=== PATIENT | female | born 1975 | race Caucasian/White ===

== ENCOUNTER 2020-03-03 07:50 | Outpatient (REF) | payer OTHER, SELFPAY ==
[2020-03-03 11:09] LABS: MANUAL DIFF FLAG NO
[2020-03-03 11:34] LABS: Basophils Absolute Auto 0.1 X10*3/uL (0.0-0.2); Basophils Percent Auto 0.7 % (0-2); Eosinophils Absolute Auto 0.3 X10*3/uL (0.0-0.4); Eosinophils Percent Auto 4.6 % (0-4); Hematocrit 38.8 % (37-47); Hemoglobin 12.3 g/dl (12.0-16.0); Imm Gran Abs Auto 0.02 X10*3/uL (0.00-0.03); Imm Gran Pct Auto 0.3 % (0.0-0.4); Lymphocytes Absolute Auto 2.3 X10*3/uL (1.2-4.9); Lymphocytes Percent Auto 34.4 % (20-40); Mean Corpuscular HGB Conc 31.7 g/dl (31.0-35.0); Mean Corpuscular Hemoglobin 29.6 pg (27.0-33.0); Mean Corpuscular Volume 93.3 fL (80-98); Mean Platelet Volume 9.7 fL (9.4-12.3); Monocytes Absolute Auto 0.4 X10*3/uL (0.1-1.2); Monocytes Percent Auto 6.4 % (2-11); Neutrophils Absolute Auto 3.6 X10*3/uL (2.0-8.3); Neutrophils Percent Auto 53.6 % (45-73); Platelet Count 318 X10*3/uL (160-400); Red Blood Count 4.16 X10*6/uL (4.20-5.50); Red Cell Distribution Width 13.1 % (11.0-16.0); White Blood Count 6.7 X10*3/uL (4.8-10.8)
[2020-03-03 11:51] LABS: Alanine Aminotransferase 13 U/L (0-31); Albumin Level 4.1 g/dL (3.5-5.0); Alkaline Phosphatase 83 U/L (39-117); Anion Gap 13 (12-20); Aspartate Amino Transferase 11 U/L (5-31); Bilirubin Total 0.7 mg/dL (0.0-1.0); Blood Urea Nitrogen 13 mg/dL (9-16); Calcium 8.3 mg/dL (8.4-10.2); Carbon Dioxide 24 mmol/L (22-29); Chloride 103 mmol/L (96-108); Cholesterol 158 mg/dL; Estimated Glomerular Filt Rate > 60; Glucose Fasting 91 mg/dL (60-99); HDL Cholesterol 48 mg/dL; LDL Cholesterol Calculated 99 mg/dl; Potassium 4.2 mmol/l (3.3-5.1); Sodium 136 mmol/L (135-145); Total Protein 6.4 g/dL (6.5-8.0); Triglycerides 55 mg/dL
[2020-03-03 12:02] LABS: Free T4 (Free Thyroxine) 1.01 ng/dL (0.71-1.85); Thyroid Stimulating Hormone 3.83 mIU/mL (0.32-4.0)
[2020-03-03 12:30] LABS: Vitamin B12 195 pg/mL (200-900)
== END 2020-03-03 07:51 | disposition home or self-care (01) ==
LOC: HO.HMGCLDS 07:50
PROVIDERS: PCP Internal Medicine; Visit Provider Internal Medicine
DX: E53.8 Deficiency of other specified B group vitamins (principal); I10 Essential (primary) hypertension; E78.2 Mixed hyperlipidemia; R73.01 Impaired fasting glucose; K76.0 Fatty (change of) liver, not elsewhere classified; E03.9 Hypothyroidism, unspecified; D12.6 Benign neoplasm of colon, unspecified
CPT/HCPCS: 36415; 80053; 80061; 82607; 84439; 84443; 85025

== ENCOUNTER → 2020-03-15 13:15 | Outpatient (BNVA) | payer OTHER, SELFPAY | PROVIDERS: PCP Internal Medicine; Visit Provider Nurse Practitioner Family | DX: Z01.818 Encounter for other preprocedural examination (principal); Z80.0 Family history of malignant neoplasm of digestive organs | CPT/HCPCS: Q3014 ==

== ENCOUNTER → 2020-04-05 09:28 | Outpatient (BNVA) | payer OTHER, SELFPAY | PROVIDERS: PCP Internal Medicine; Visit Provider Advanced Practice Midwife | DX: Z76.89 Persons encountering health services in other specified circumstances (principal) ==

== ENCOUNTER → 2020-05-14 09:47 | Outpatient (BNVA) | payer OTHER, SELFPAY | PROVIDERS: PCP Internal Medicine; Referring Provider Internal Medicine; Visit Provider Urology | DX: Z76.89 Persons encountering health services in other specified circumstances (principal) | CPT/HCPCS: 99202 ==

== ENCOUNTER 2020-05-25 07:55 | Day surgery (SDC) | payer OTHER, SELFPAY ==
--- NOTE | 2020-05-24 12:16 | HO.ANESPROP2 ---
Documented by User: Arleth Noriega 05/24/20 12:19 HPI - Anesthesia Eval Consult details Narrative: 45yo F for Interstim Lead Removal PMFSH Past Medical History Medical History Acquired hypothyroidism Adenomatous polyp of colon Anxiety disorder Essential hypertension Family history of colon cancer in mother Family history of malignant neoplasm of ovary in first degree relative Family history of uterine cancer Fatty liver GERD (gastroesophageal reflux disease) Heavy menstrual bleeding History of kidney stones Impaired fasting glucose Migraine Mixed hyperlipidemia Nonspecific abnormal response to nerve stimulation Urinary incontinence Vitamin B12 deficiency Family History Family History Father CHF (congestive heart failure) CVD (cardiovascular disease) Mother Ovarian cancer Renal cancer Maternal Grandmother Breast cancer Ovarian cancer CHF (congestive heart failure) Maternal Grandfather Liver cirrhosis Paternal Grandfather Throat cancer Diabetes mellitus Paternal Grandmother Diabetes mellitus Maternal Aunt Breast cancer Ovarian cancer Sister No problems noted. Sister No problems noted. Son No problems noted. Son No problems noted. Daughter No problems noted. Daughter No problems noted. Surgical History Surgical History History of appendectomy History of biopsy History of bladder surgery History of endometrial biopsy History of knee surgery History of tonsillectomy History of tubal ligation Hx of cholecystectomy Hx of colonoscopy Social History Social History Alcohol intake: former Smoking Status: Never smoker Use of substances other than those prescribed or required for medical reasons: No Have you been hit, kicked, punched, or otherwise hurt by someone within the past year? If so, by whom?: No Advance Directives: No Advance Directives Information Provided: No Recently lost weight without trying: Unsure Meds Allergies Allergy/AdvReac Type Severity Reaction Status Date / Time bee pollen [BEE STINGS] Allergy Unknown ANAPHYLAXIS Verified 05/14/20 10:01 Penicillins Allergy Unknown coma? Verified 05/14/20 10:01 erythromycin base AdvReac Mild VOMITING Verified 05/14/20 10:01 [ERYTHROMYCIN BASE] iodine AdvReac Unknown peeling Verified 05/14/20 10:01 skin Home Medications Medication Instructions Recorded Confirmed Type levonorgestrel 20 mcg/24 hours (6 INTRAUTERINE 03/02/20 05/14/20 History yrs) 52 mg intrauterine device multivitamin 1 tab PO DAILY 03/02/20 05/20/20 History Exam Exam Date and Time: May 24, 2020 1216 Pertinent Lab Results Pertinent Lab Results: Laboratory Tests 03/03/20 03/03/20 08:00 08:00 WBC 6.7 Hgb 12.3 Hct 38.8 Plt Count 318 Sodium 136 Potassium 4.2 Chloride 103 Carbon Dioxide 24 BUN 13 Creatinine 0.76 Assessment and Plan Assessment Anesthesia Assessment: Chart Reviewed Documented by User: Gnujan Oconnor 05/25/20 08:18 [facility] Past Medical History Medical History Acquired hypothyroidism Adenomatous polyp of colon Anxiety disorder Essential hypertension Family history of colon cancer in mother Family history of malignant neoplasm of ovary in first degree relative Family history of uterine cancer Fatty liver GERD (gastroesophageal reflux disease) Heavy menstrual bleeding History of kidney stones Impaired fasting glucose Migraine Mixed hyperlipidemia Nonspecific abnormal response to nerve stimulation Urinary incontinence Vitamin B12 deficiency Family History Family History Father CHF (congestive heart failure) CVD (cardiovascular disease) Mother Ovarian cancer Renal cancer Maternal Grandmother Breast cancer Ovarian cancer CHF (congestive heart failure) Maternal Grandfather Liver cirrhosis Paternal Grandfather Throat cancer Diabetes mellitus Paternal Grandmother Diabetes mellitus Maternal Aunt Breast cancer Ovarian cancer Sister No problems noted. Sister No problems noted. Son No problems noted. Son No problems noted. Daughter No problems noted. Daughter No problems noted. Surgical History Surgical History History of appendectomy History of biopsy History of bladder surgery History of endometrial biopsy History of knee surgery History of tonsillectomy History of tubal ligation Hx of cholecystectomy Hx of colonoscopy Social History Social History Alcohol intake: former Smoking Status: Never smoker Use of substances other than those prescribed or required for medical reasons: No Have you been hit, kicked, punched, or otherwise hurt by someone within the past year? If so, by whom?: No Advance Directives: No Advance Directives Information Provided: No Recently lost weight without trying: Unsure Meds Allergies Allergy/AdvReac Type Severity Reaction Status Date / Time bee pollen [BEE STINGS] Allergy Unknown ANAPHYLAXIS Verified 05/14/20 10:01 Penicillins Allergy Unknown coma? Verified 05/14/20 10:01 erythromycin base AdvReac Mild VOMITING Verified 05/14/20 10:01 [ERYTHROMYCIN BASE] iodine AdvReac Unknown peeling Verified 05/14/20 10:01 skin Home Medications Medication Instructions Recorded Confirmed Type levonorgestrel 20 mcg/24 hours (6 INTRAUTERINE 03/02/20 05/14/20 History yrs) 52 mg intrauterine device multivitamin 1 tab PO DAILY 03/02/20 05/20/20 History Exam Airway Mallampati Class: II TM Dist: >3cm Neck ROM: Full Assessment and Plan Assessment Anesthesia Assessment: Anesthesia Plan Discussed and Chart Reviewed Final Anesthetic Review NPO: Yes ASA Class: II Final Preanesthetic Review: No Changes in Pt Med Stat, Meds/Allgs Chart Reviewed, Consent Obtained/Reviewed and Anes Risks/Benef Reviewed Patient Risk: Low Procedure Risk: Low Assessment/Block/Sedation in SS: Assess/Block/Sedation-SS Anesthetic Plan Anesthetic Plan: MAC: Disposition: Standard PACU
[2020-05-24 16:05] VITALS: BMI 38.6
--- NOTE | 2020-05-25 08:06 | MHC.SHP ---
Pre-Procedural Eval Section A The patient is an INPATIENT: No The History & Physical has been completed within 30 days and I have reviewed it.: Yes Section B Chief Complaint: urinary incontinence Allergies: Allergies Allergy/AdvReac Type Severity Reaction Status Date / Time bee pollen [BEE STINGS] Allergy Unknown ANAPHYLAXIS Verified 05/14/20 10:01 Penicillins Allergy Unknown coma? Verified 05/14/20 10:01 erythromycin base AdvReac Mild VOMITING Verified 05/14/20 10:01 [ERYTHROMYCIN BASE] iodine AdvReac Unknown peeling Verified 05/14/20 10:01 skin Plan Diagnosis/Plan: Unchanged I have reviewed the history and physical and performed a pertinent physical examination on my patient. No changes have occurred unless specified.
[2020-05-25 08:11] VITALS: BP 111/39; PULSE 81; RESP 16; TEMP 36.4; O2SAT 99
[2020-05-25] MEDS: Lactated Ringers 1,000 ML 100 ML IVCONT (08:28)
[2020-05-25] MEDS: levoFLOXacin/D5W 500 MG/100 ML PIGGYBACK 100 MG IV (08:29)
--- NOTE | 2020-05-25 09:01 | PM.OP ---
Brief Operative Note Date of Service: 05/25/20 Pre-op diagnosis: urinary incontinence Post-op diagnosis: same Procedure: removal of IPG and lead Surgeon: Tay Brown III, MD Anesthesia: MAC and local Estimated blood loss (mL): 0 Pathology: none sent Condition: stable Disposition: same day
[2020-05-25 09:03] VITALS: BP 93/46; PULSE 78; RESP 16; TEMP 36.2; O2SAT 94
[2020-05-25 09:08] VITALS: BP 104/57; PULSE 61; RESP 16; O2SAT 94
[2020-05-25 09:14] VITALS: BP 107/47; PULSE 70; RESP 18; O2SAT 94
[2020-05-25 09:19] VITALS: BP 109/63; PULSE 60; RESP 18; O2SAT 95
[2020-05-25] MEDS: Acetaminophen 325 MG TABLET 650 MG PO (09:23)
[2020-05-25] MEDS: oxyCODONE HCl Immed Release 5 MG TABLET PO (09:23)
[2020-05-25 09:38] VITALS: TEMP 36.3
--- NOTE | 2020-05-25 10:00 | HO.POSTANES ---
Post Anesthesia Evaluation Post Anesthesia Evaluation Vital Signs: Vital Signs Temp Pulse Resp BP Pulse Ox 05/25/20 09:38 97.4 F 05/25/20 09:19 60 18 109/63 95 05/25/20 09:14 70 18 107/47 L 94 05/25/20 09:08 61 16 104/57 L 94 05/25/20 09:03 97.2 F 78 16 93/46 L 94 05/25/20 08:11 97.5 F 81 16 111/39 L 99 Anesthesia: Monitored Mental Status: Awake Pain Control: Satisfactory Nausea/Vomiting: None Hydration: Adequate Anesthesia-Related Issues: No Anes. Related Issues
--- NOTE | 2020-08-26 16:05 | OP_ITS ---
SURGEON: Tay Brown III, MD PREOPERATIVE DIAGNOSIS: Urinary incontinence. POSTOPERATIVE DIAGNOSIS: Urinary incontinence. PROCEDURE PERFORMED: ESTIMATED BLOOD LOSS: None. COMPLICATIONS: None. ANESTHESIA: ASSISTANTS: SPECIMENS: PROCEDURE: Removal of InterStim IPG and lead. ANESTHETIC: MAC local. SPECIMEN: None. DESCRIPTION OF PROCEDURE: The patient was taken to the operating room. After adequate anesthesia obtained, a time-out done demonstrating correct patient, correct procedure. Following this, the patient underwent injection of local and the previous incision was opened. Sharp dissection was used to expose the IPG which removed. The wire was dissected back towards the midline and subsequently grasped at the most distal aspect with a needle electric train driver and pulled and removed as was explained to the patient preoperatively. The distal end of the lead with its fixation device is still in place. The patient had irrigation of her incision, subsequently had a 3-layer closure. She tolerated procedure well with no complications. Tay Brown III, MD SS/MODL / [id number]
== END 2020-05-25 10:10 | disposition home or self-care (01) ==
PROVIDERS: PCP Internal Medicine; Visit Provider Urology
PROC: (CPT 64585; principal; 2020-05-25 09:20)
DX: R32 Unspecified urinary incontinence (principal); Z87.442 Personal history of urinary calculi; I10 Essential (primary) hypertension; R73.01 Impaired fasting glucose; E55.9 Vitamin D deficiency, unspecified; Z79.899 Other long term (current) drug therapy; Z88.0 Allergy status to penicillin
CPT/HCPCS: 64585; 64595; J1956; J2250; J2405; J3010

== ENCOUNTER 2020-05-27 06:35 | Day surgery (SDC) | payer OTHER, SELFPAY ==
[2020-05-20 15:31] VITALS: BMI 37.9
--- NOTE | 2020-05-26 08:17 | P.CONAN_ITS ---
Documented by User: Arleth Noriega 05/26/20 08:19 HPI - Anesthesia Eval Consult details Narrative: 45yo F for Colonoscopy s/p Interstim lead removal with MAC 05/25/20 PMF Past Medical History Medical History Acquired hypothyroidism Adenomatous polyp of colon Anxiety disorder Essential hypertension Family history of colon cancer in mother Family history of malignant neoplasm of ovary in first degree relative Family history of uterine cancer Fatty liver GERD (gastroesophageal reflux disease) Heavy menstrual bleeding History of kidney stones Impaired fasting glucose Migraine Mixed hyperlipidemia Nonspecific abnormal response to nerve stimulation Urinary incontinence Vitamin B12 deficiency Family History Family History Father CHF (congestive heart failure) CVD (cardiovascular disease) Mother Ovarian cancer Renal cancer Maternal Grandmother Breast cancer Ovarian cancer CHF (congestive heart failure) Maternal Grandfather Liver cirrhosis Paternal Grandfather Throat cancer Diabetes mellitus Paternal Grandmother Diabetes mellitus Maternal Aunt Breast cancer Ovarian cancer Sister No problems noted. Sister No problems noted. Son No problems noted. Son No problems noted. Daughter No problems noted. Daughter No problems noted. Surgical History Surgical History History of appendectomy History of biopsy History of bladder surgery History of endometrial biopsy History of knee surgery History of tonsillectomy History of tubal ligation Hx of cholecystectomy Hx of colonoscopy Social History Social History Alcohol intake: former Smoking Status: Never smoker Second Hand Smoke Exposure: No Advance Directives: No Advance Directives Information Provided: Yes Recently lost weight without trying: No Meds Allergies Allergy/AdvReac Type Severity Reaction Status Date / Time bee pollen [BEE STINGS] Allergy Unknown ANAPHYLAXIS Verified 05/14/20 10:01 Penicillins Allergy Unknown coma? Verified 05/14/20 10:01 erythromycin base AdvReac Mild VOMITING Verified 05/14/20 10:01 [ERYTHROMYCIN BASE] iodine AdvReac Unknown peeling Verified 05/14/20 10:01 skin Home Medications Medication Instructions Recorded Confirmed Type levonorgestrel 20 mcg/24 hours (6 INTRAUTERINE 03/02/20 05/14/20 History yrs) 52 mg intrauterine device multivitamin 1 tab PO DAILY 03/02/20 05/20/20 History Exam Exam Date and Time: May 26, 2020 0817 Height,Weight and Vital Signs: Height 5 ft 4 in Weight 100.244 kg Pertinent Lab Results Pertinent Lab Results: Laboratory Tests 03/03/20 03/03/20 08:00 08:00 WBC 6.7 Hgb 12.3 Hct 38.8 Plt Count 318 Sodium 136 Potassium 4.2 Chloride 103 Carbon Dioxide 24 BUN 13 Creatinine 0.76 Assessment and Plan Assessment Anesthesia Assessment: Chart Reviewed Documented by User: Laurel Garcia 05/27/20 07:32 [facility] Past Medical History Medical History Acquired hypothyroidism Adenomatous polyp of colon Anxiety disorder Essential hypertension Family history of colon cancer in mother Family history of malignant neoplasm of ovary in first degree relative Family history of uterine cancer Fatty liver GERD (gastroesophageal reflux disease) Heavy menstrual bleeding History of kidney stones Impaired fasting glucose Migraine Mixed hyperlipidemia Nonspecific abnormal response to nerve stimulation Urinary incontinence Vitamin B12 deficiency Family History Family History Father CHF (congestive heart failure) CVD (cardiovascular disease) Mother Ovarian cancer Renal cancer Maternal Grandmother Breast cancer Ovarian cancer CHF (congestive heart failure) Maternal Grandfather Liver cirrhosis Paternal Grandfather Throat cancer Diabetes mellitus Paternal Grandmother Diabetes mellitus Maternal Aunt Breast cancer Ovarian cancer Sister No problems noted. Sister No problems noted. Son No problems noted. Son No problems noted. Daughter No problems noted. Daughter No problems noted. Family history of problems with anesthesia: No Surgical History Surgical History History of appendectomy History of biopsy History of bladder surgery History of endometrial biopsy History of knee surgery History of tonsillectomy History of tubal ligation Hx of cholecystectomy Hx of colonoscopy History of Problems with Anesthesia: No Social History Social History Alcohol intake: former Smoking Status: Never smoker Second Hand Smoke Exposure: No Advance Directives: No Advance Directives Information Provided: Yes Recently lost weight without trying: No Meds Allergies Allergy/AdvReac Type Severity Reaction Status Date / Time bee pollen [BEE STINGS] Allergy Unknown ANAPHYLAXIS Verified 05/14/20 10:01 Penicillins Allergy Unknown coma? Verified 05/14/20 10:01 erythromycin base AdvReac Mild VOMITING Verified 05/14/20 10:01 [ERYTHROMYCIN BASE] iodine AdvReac Unknown peeling Verified 05/14/20 10:01 skin Home Medications Medication Instructions Recorded Confirmed Type levonorgestrel 20 mcg/24 hours (6 INTRAUTERINE 03/02/20 05/14/20 History yrs) 52 mg intrauterine device multivitamin 1 tab PO DAILY 03/02/20 05/20/20 History Exam Height,Weight and Vital Signs: Vital Signs Temp Pulse Resp BP Pulse Ox 05/27/20 06:55 97.2 F 80 15 103/55 L 98 Airway Mallampati Class: II TM Dist: >3cm Neck ROM: Full Denture: Upper Heart: RRR Lungs: CTAB Assessment and Plan Assessment Anesthesia Assessment: Anesthesia Plan Discussed and Chart Reviewed Final Anesthetic Review NPO: Yes ASA Class: II Final Preanesthetic Review: No Changes in Pt Med Stat, Meds/Allgs Chart Reviewed, Consent Obtained/Reviewed and Anes Risks/Benef Reviewed Patient Risk: Low Procedure Risk: Low Assessment/Block/Sedation in SS: Assess/Block/Sedation-SS Anesthetic Plan Anesthetic Plan: MAC: Disposition: Standard PACU
[2020-05-27 06:55] VITALS: BP 103/55; PULSE 80; RESP 15; TEMP 36.2; O2SAT 98
[2020-05-27] MEDS: Lactated Ringers 1,000 ML 100 ML IVCONT (07:06)
--- NOTE | 2020-05-27 07:46 | MHC.SHP ---
Pre-Procedural Eval Section B Chief Complaint: screening Details of Present Illness: Colon cancer screening, Hx of tubular adenomas, +family hx-mother age 46 Relevant Family History (Specify if Yes): Yes Relevant Social History: None Present Medications: see Short Stay Collaborative assessment Medical History: Significant History (Obesity) History of Previous Operations: Relevant previous surgery/procedure and date(s) (Appendix, BTL, cholecystectomy, colonoscopy in 2011) Allergies: Allergies Allergy/AdvReac Type Severity Reaction Status Date / Time bee pollen [BEE STINGS] Allergy Unknown ANAPHYLAXIS Verified 05/14/20 10:01 Penicillins Allergy Unknown coma? Verified 05/14/20 10:01 erythromycin base AdvReac Mild VOMITING Verified 05/14/20 10:01 [ERYTHROMYCIN BASE] iodine AdvReac Unknown peeling Verified 05/14/20 10:01 skin Review of Systems Sugical H&P ROS: Negative: Constitution, Respiratory and Gastrointestinal Exam Surgical H&P Exam: Normal: HEENT, Normal: Heart, Normal: Lungs and Normal: Abdomen Plan Diagnosis/Plan: Unchanged I have reviewed the history and physical and performed a pertinent physical examination on my patient. No changes have occurred unless specified.yes.
[2020-05-27 08:35] VITALS: BP 97/52; PULSE 80; RESP 16; TEMP 36.2; O2SAT 96
--- NOTE | 2020-05-27 08:36 | PCN2_ITS ---
Brief Operative Note Date of procedure: 05/27/20 Pre-op diagnosis: COLON CANCER SCREENING, HX TUBULAR ADENOMAS-2011; HX COLON C ANCER MOTHER 46 Post-op diagnosis: other (MILD MELANOSIS TINGE, NORMAL COLON-FAIR PREP) Procedure: COLONOSCOPY Anesthesia: MAC (Tori CARPENTER CRNA) Surgeon: Chyna Hernandez Estimated blood loss (mL): 0 Pathology: none sent Condition: stable Disposition: PACU
[2020-05-27 08:48] VITALS: BP 116/69; PULSE 64; RESP 18; TEMP 36.1; O2SAT 98
--- NOTE | 2020-05-27 09:07 | HO.POSTANES ---
Post Anesthesia Evaluation Post Anesthesia Evaluation Vital Signs: Vital Signs Temp Pulse Resp BP Pulse Ox 05/27/20 08:48 97.0 F 64 18 116/69 98 05/27/20 08:35 97.1 F 80 16 97/52 L 96 05/27/20 06:55 97.2 F 80 15 103/55 L 98 Anesthesia: TIVA Mental Status: Awake Pain Control: Satisfactory Nausea/Vomiting: None Hydration: Adequate Anesthesia-Related Issues: No Anes. Related Issues
--- NOTE | 2020-05-27 10:42 | OP_ITS ---
SURGEON: Chyna Hernandez MD PREOPERATIVE DIAGNOSIS: Colon cancer screening, Positive family hx. POSTOPERATIVE DIAGNOSIS: Diagnosis negative. Positive family history. PROCEDURE PERFORMED: Colonoscopy. ESTIMATED BLOOD LOSS: No blood loss. COMPLICATIONS: No complications. ANESTHESIA: Monitored. ANESTHESIOLOGIST: Favio Frausto CRNA. ASSISTANTS:NONE SPECIMENS: No specimens. PREOPERATIVE DIAGNOSES: Colon cancer screening, high-risk patient; history of tubular adenomas in 2012; mother with colon cancer at 46. ROLLING DOWN MACHINE OPERATOR: Dr. Hernandez. CONDITION: Postprocedure, stable. FINDINGS: Digital rectal exam revealed sphincter tone to be decreased. Video colonoscope was introduced without difficulty. It was navigated into rectosigmoid. There was moderate amount of residual turbid fluid with some solid skibble of stool as we passed through a redundant colon. As the scope got to the mid transverse colon, there was extrinsic looping. With 2-tech assist we were able to improve passage through proximal transverse colon, ascending colon down into the cecum. Appendiceal orifice was seen. Ileocecal valve was well seen. No mucosal abnormalities were appreciated. Slow withdrawal of the scope. Good rotational views. No lesions were seen. Anorectal verge was clear. COMMENT: Prep was marginal in spots. Would recommend FIT testing at years 1 and 3. CURRENT RECOMMENDATIONS: Repeat asymptomatic screening in 5 years. GRAFT OR IMPLANTS: No grafts or implants. Chyna Hernandez MD MEN/MODL / [id number] MTDD
== END 2020-05-27 09:17 | disposition home or self-care (01) ==
PROVIDERS: PCP Internal Medicine; Visit Provider Internal Medicine Gastroenterology
PROC: 0DJD8ZZ Inspection of Lower Intestinal Tract, Via Natural or Artificial Opening Endoscopic (ICD-10-PCS; CPT 45378; principal; 2020-05-27 07:30)
DX: Z12.11 Encounter for screening for malignant neoplasm of colon (principal); Z86.010 Personal history of colon polyps; Z80.0 Family history of malignant neoplasm of digestive organs; I10 Essential (primary) hypertension; K21.9 Gastro-esophageal reflux disease without esophagitis; Z90.49 Acquired absence of other specified parts of digestive tract; Z79.899 Other long term (current) drug therapy
CPT/HCPCS: G0105; J1610

== ENCOUNTER → 2020-06-17 15:30 | Outpatient (BNVA) | payer OTHER, SELFPAY | PROVIDERS: PCP Internal Medicine; Visit Provider Nurse Practitioner Family | DX: D12.6 Benign neoplasm of colon, unspecified (principal); Z98.890 Other specified postprocedural states | CPT/HCPCS: Q3014 ==

== ENCOUNTER 2020-08-06 07:49 | Outpatient (REF) | payer OTHER, SELFPAY ==
[2020-08-06 11:17] LABS: MANUAL DIFF FLAG NO
[2020-08-06 11:42] LABS: Basophils Absolute Auto 0.1 X10*3/uL (0.0-0.2); Basophils Percent Auto 0.7 % (0-2); Eosinophils Absolute Auto 0.3 X10*3/uL (0.0-0.4); Eosinophils Percent Auto 4.2 % (0-4); Hematocrit 38.5 % (37-47); Hemoglobin 12.5 g/dl (12.0-16.0); Imm Gran Abs Auto 0.03 X10*3/uL (0.00-0.03); Imm Gran Pct Auto 0.4 % (0.0-0.4); Lymphocytes Absolute Auto 2.2 X10*3/uL (1.2-4.9); Mean Corpuscular HGB Conc 32.5 g/dl (31.0-35.0); Mean Corpuscular Hemoglobin 30.3 pg (27.0-33.0); Mean Corpuscular Volume 93.2 fL (80-98); Mean Platelet Volume 9.9 fL (9.4-12.3); Monocytes Absolute Auto 0.5 X10*3/uL (0.1-1.2); Neutrophils Absolute Auto 3.7 X10*3/uL (2.0-8.3); Neutrophils Percent Auto 54.7 % (45-73); Platelet Count 295 X10*3/uL (160-400); Red Blood Count 4.13 X10*6/uL (4.20-5.50); Red Cell Distribution Width 12.8 % (11.0-16.0); White Blood Count 6.7 X10*3/uL (4.8-10.8)
[2020-08-06 11:56] LABS: Alanine Aminotransferase 11 U/L (0-31); Anion Gap 12 (12-20); Aspartate Amino Transferase 11 U/L (5-31); Blood Urea Nitrogen 14 mg/dL (9-16); Calcium 8.8 mg/dL (8.4-10.2); Carbon Dioxide 26 mmol/L (22-29); Chloride 105 mmol/L (96-108); Cholesterol 147 mg/dL; Estimated Glomerular Filt Rate > 60; Glucose Fasting 91 mg/dL (60-99); HDL Cholesterol 47 mg/dL; LDL Cholesterol Calculated 92 mg/dl; Potassium 4.5 mmol/L (3.3-5.1); Sodium 138 mmol/L (135-145); Triglycerides 40 mg/dL
[2020-08-06 12:19] LABS: Free T4 (Free Thyroxine) 0.86 ng/dL (0.71-1.85); Thyroid Stimulating Hormone 2.81 uIU/mL (0.32-4.0); Vitamin D 25-OH Total 19.7 ng/mL (>30)
[2020-08-06 12:27] LABS: Folate 3.9 ng/mL (> or = 4.0); Vitamin B12 231 pg/mL (200-900)
== END 2020-08-06 07:50 | disposition home or self-care (01) ==
LOC: HO.HMGCLDS 07:49
PROVIDERS: PCP Internal Medicine; Visit Provider Internal Medicine
DX: Z00.01 Encounter for general adult medical examination with abnormal findings (principal); E03.9 Hypothyroidism, unspecified; E53.8 Deficiency of other specified B group vitamins; I10 Essential (primary) hypertension; D12.6 Benign neoplasm of colon, unspecified; E78.2 Mixed hyperlipidemia; K76.0 Fatty (change of) liver, not elsewhere classified; R73.01 Impaired fasting glucose
CPT/HCPCS: 36415; 80048; 80061; 82306; 82607; 82746; 84439; 84443; 84450; 84460; 85025

== ENCOUNTER 2020-11-12 15:14 | Outpatient (REF) | payer OTHER, SELFPAY ==
--- NOTE | ~2020-11-12 | MM_ITS ---
EXAMINATION: MM SCREENING DIGITAL BREAST TOMOSYNTHESIS, BILATERAL CLINICAL INFORMATION: Screening. Asymptomatic. The lifetime risk of breast cancer based on the Tyrer-Cuzick Model is 12%. COMPARISON: Mammography: 12/14/2017, 03/02/2016, 11/13/2014 TECHNIQUE: Digital breast tomosynthesis is performed in both the craniocaudal and mediolateral oblique views along with computer-aided detection (CAD). Synthesized 2D images are generated from the tomosynthesis. FINDINGS: There are scattered areas of fibroglandular density (ACR BI-RADS breast composition Category b). There are no significant masses, abnormal calcifications, or other abnormalities. Parenchymal pattern is similar to prior exams. MM/MM tomosynthesis screening BI IMPRESSION: No mammographic evidence of malignancy. ASSESSMENT: BI-RADS 1: Negative RECOMMENDATION: Routine annual mammography screening. This patient's information was entered into a reminder system with a target due date for their next mammogram.
== END 2020-11-12 15:15 | disposition home or self-care (01) ==
LOC: HO.MAMMO 15:14
PROVIDERS: Visit Provider Internal Medicine
DX: Z12.31 Encounter for screening mammogram for malignant neoplasm of breast (principal)
CPT/HCPCS: 77063; 77067

== ENCOUNTER 2021-01-28 07:45 | Outpatient (REF) | payer OTHER, SELFPAY ==
[2021-01-28 13:03] LABS: Alanine Aminotransferase 12 U/L (0-31); Albumin Level 4.2 g/dL (3.5-5.0); Alkaline Phosphatase 87 U/L (39-117); Anion Gap 11 (12-20); Aspartate Amino Transferase 12 U/L (5-31); Bilirubin Total 0.9 mg/dL (0.0-1.0); Blood Urea Nitrogen 17 mg/dL (9-16); Calcium 8.7 mg/dL (8.4-10.2); Carbon Dioxide 25 mmol/L (22-29); Chloride 106 mmol/L (96-108); Cholesterol 168 mg/dL; Estimated Glomerular Filt Rate > 60; Glucose Fasting 107 mg/dL (60-99); HDL Cholesterol 51 mg/dL; LDL Cholesterol Calculated 108 mg/dl; Potassium 4.6 mmol/L (3.3-5.1); Sodium 137 mmol/L (135-145); Total Protein 6.4 g/dL (6.5-8.0); Triglycerides 45 mg/dL
[2021-01-28 13:27] LABS: Folate 14.8 ng/mL (> or = 4.0); Free T4 (Free Thyroxine) 0.92 ng/dL (0.71-1.85); Vitamin B12 266 pg/mL (200-900); Vitamin D 25-OH Total 32.7 ng/mL (>30)
[2021-01-28 14:06] LABS: Estimated Average Glucose 108 mg/dL; Hemoglobin A1c % 5.4 %
[2021-01-30 05:01] LABS: Rubella IgG Antibody 4.92 Index; Rubeola IgG (Measles) >300.00 AU/mL
[2021-01-31 04:25] LABS: HBS Num1 37.27 mIU/mL (0-7.99); ~Hepatitis B Surface Antibody REACTIVE (Nonreactive)
[2021-01-31 11:46] LABS: TS Negative Control Passed; TS Panel A 0; TS Panel B 0; TS Positive Control Passed; TSpotTB Negative (SeeBelow)
== END 2021-01-28 07:46 | disposition home or self-care (01) ==
LOC: HO.HMGCLDS 07:45
PROVIDERS: PCP Internal Medicine; Visit Provider Internal Medicine
DX: E53.8 Deficiency of other specified B group vitamins (principal); I10 Essential (primary) hypertension; E78.2 Mixed hyperlipidemia; R73.01 Impaired fasting glucose; K76.0 Fatty (change of) liver, not elsewhere classified; E03.9 Hypothyroidism, unspecified; Z78.0 Asymptomatic menopausal state; Z01.84 Encounter for antibody response examination
CPT/HCPCS: 36415; 80053; 80061; 82306; 82607; 82746; 83036; 84439; 84443; 86481; 86706; 86735; 86762; 86765; 86787

== ENCOUNTER 2021-03-14 11:47 | Outpatient (REF) | payer OTHER, SELFPAY ==
[2021-03-14 13:03] LABS: Influenza A PCR NEGATIVE (Negative); Influenza B PCR NEGATIVE (Negative); Resp Syncy Virus RNA Qual PCR NEGATIVE (Negative); SARS COV2 PCR INHOUSE NEGATIVE (Negative)
== END 2021-03-14 11:48 | disposition home or self-care (01) ==
LOC: HO.LNP 11:47
PROVIDERS: Visit Provider Internal Medicine
DX: Z20.822 Contact with and (suspected) exposure to COVID-19 (principal); R43.9 Unspecified disturbances of smell and taste
CPT/HCPCS: 0241U

== ENCOUNTER 2021-04-05 08:11 | Emergency (ER) | payer OTHER, SELFPAY ==
[2021-04-05 08:26] VITALS: BP 107/62; PULSE 91; RESP 18; TEMP 36.9; O2SAT 97; BMI 41.1
[2021-04-05 08:36] LABS: IDNOW Serial# 9DD0AD1C
--- NOTE | 2021-04-05 08:36 | ED.URI ---
HPI - URI/Sore Throat General Chief Complaint: Upper Respiratory Symptoms Stated Complaint: Flu symptoms Time Seen by Provider: 04/05/21 08:32 Source: patient Mode of arrival: ambulatory Limitations: no limitations History of Present Illness MD elicited complaint: fever and other (headaches, body aches) Pertinent past history: other (vaccinated x 2) Onset (ago): day(s) (3) Consistency: constant Severity: mild Able to tolerate fluids by mouth: Yes Exacerbating factors: nothing Relieving factors: nothing Associated symptoms: fever, myalgias and headache Treatments prior to arrival: none Related Data Home Medications Medication Instructions Recorded Confirmed levonorgestrel 20 mcg/24 hours (7 INTRAUTERINE 03/02/20 03/09/21 yrs) 52 mg intrauterine device (Mirena) multivitamin 1 tab PO DAILY 03/02/20 03/09/21 cholecalciferol (vitamin D3) 25 25 mcg PO DAILY 03/09/21 03/09/21 mcg (1,000 unit) capsule Previous Rx's Medication Instructions Recorded meloxicam 15 mg tablet 15 mg PO DAILY 5 Days #5 tab 03/09/21 azithromycin 250 mg tablet See Rx Instructions PO .COMPLEX #6 03/14/21 tab Allergies Allergy/AdvReac Type Severity Reaction Status Date / Time bee pollen [BEE STINGS] Allergy Unknown ANAPHYLAXIS Verified 04/05/21 08:26 Penicillins Allergy Unknown coma? Verified 04/05/21 08:26 erythromycin base AdvReac Mild VOMITING Verified 04/05/21 08:26 [ERYTHROMYCIN BASE] iodine AdvReac Unknown peeling Verified 04/05/21 08:26 skin Review of Systems Review of Systems: Constitutional : positive Fever, positive Chills, positive fatigue, positive Malaise ENT/Mouth : positive sore throat, positive runny nose Eyes: No Discharge Cardiovascular : No Chest Pain, No SOB Respiratory : No Cough, No Sputum Gastrointestinal : No Nausea, No Vomiting, No Diarrhea Genitourinary : No Dysuria, No Urinary Frequency Musculoskeletal : positive Myalgia Skin : No rash Neuro : pos Headache PMFSH Past Medical History Medical History Acquired hypothyroidism Adenomatous polyp of colon Anxiety disorder Erythema intertrigo Essential hypertension Family history of colon cancer in mother Family history of malignant neoplasm of ovary in first degree relative Family history of uterine cancer Fatty liver GERD (gastroesophageal reflux disease) Heavy menstrual bleeding History of kidney stones Impaired fasting glucose Migraine Mixed hyperlipidemia Nonspecific abnormal response to nerve stimulation Urinary incontinence Vitamin B12 deficiency Surgical History History of appendectomy History of biopsy History of bladder surgery History of endometrial biopsy History of knee surgery History of tonsillectomy History of tubal ligation Hx of cholecystectomy Hx of colonoscopy Family History Family History Father CHF (congestive heart failure) CVD (cardiovascular disease) Mother Ovarian cancer Renal cancer Maternal Grandmother Breast cancer Ovarian cancer CHF (congestive heart failure) Maternal Grandfather Liver cirrhosis Paternal Grandfather Throat cancer Diabetes mellitus Paternal Grandmother Diabetes mellitus Maternal Aunt Breast cancer Ovarian cancer Sister No problems noted. Sister No problems noted. Son No problems noted. Son No problems noted. Daughter No problems noted. Daughter No problems noted. Social History Social History Household Members: Spouse and Children Alcohol intake: current Alcohol intake frequency: does not drink Patient Tobacco Use Status: Never used Tobacco Second Hand Smoke Exposure: No Advance Directives: No Advance Directives Information Provided: No Patient : No Physical Exam Vital Signs: Vital Signs: Last Vital Signs Temp 98.4 F 04/05/21 08:26 Pulse 91 04/05/21 08:26 Resp 18 04/05/21 08:26 BP 107/62 04/05/21 08:26 Pulse Ox 97 04/05/21 08:26 BMI result Body Mass Index 41.1 Appearance: Alert. Oriented X3. No acute distress. Eyes: Pupils equal, round and reactive to light. ENT: Pharynx normal. Neck: Normal inspection. Neck supple. CVS: Normal heart rate and rhythm. Pulses normal. Respiratory: No respiratory distress. Breath sounds normal. Abdomen: Soft and nontender. Skin: Skin warm and dry. Normal skin color. Normal skin turgor. Extremities: No lower extremity edema. No calf ttp Neuro: Oriented X 3. No motor deficit. No sensory deficit. MDM - URI/Sore Throat MDM Narrative Medical decision making narrative: 45 yo female vaccinated not toxic no resp complaints no hypoxia - here with body aches, fevers, headaches - COVID + given mAB referral, precautions to return. stable for DC Lab Data Labs: Lab Results 04/05/21 Range/Units 08:19 COVID-19 ([facility]) Positive A (Negative) COVID-19 Clin Com See Note Discharge Plan Discharge Clinical Impression: COVID-19 Patient Disposition: Home, Self-Care Instructions: COVID-19 (Coronavirus Disease 2019) (ED) Additional Instructions: return to ED for any worsening symptoms or concerns if you are so short of breath you cannot walk to the bathroom please come back wear a mask, quarantine, protect others Prescriptions: No Action Mirena 20 mcg/24 hours (5 yrs) 52 mg intrauterine device intrauterine RF: 0 multivitamin Tablet 1 tab PO DAILY RF: 0 cholecalciferol (vitamin D3) 25 mcg (1,000 unit) capsule 25 mcg PO DAILY RF: 0 meloxicam 15 mg tablet 15 mg PO DAILY 5 Days Qty: 5 RF: 0 azithromycin 250 mg tablet See Rx Instructions PO .COMPLEX Qty: 6 RF: 0 Stand Alone Forms: Work/School Release
[2021-04-05 08:39] LABS: COVID-19 Test Positive (Negative)
== END 2021-04-05 09:01 | disposition home or self-care (01) ==
PROVIDERS: Emergency Provider Emergency Medicine; PCP Internal Medicine
DX: R50.9 Fever, unspecified (principal); M79.10 Myalgia, unspecified site; R51.9 Headache, unspecified; Z20.822 Contact with and (suspected) exposure to COVID-19; Z79.899 Other long term (current) drug therapy
CPT/HCPCS: 36415; 87635; 99283

== ENCOUNTER 2021-11-18 12:59 | Outpatient (REF) | payer OTHER, SELFPAY ==
[2021-11-18 13:28] LABS: Binax Internal Control QC Valid; Binax Now Covid-19 Ag Negative (Negative)
== END 2021-11-18 13:00 | disposition home or self-care (01) ==
LOC: HO.HMGCLDS 12:59
PROVIDERS: PCP Internal Medicine
DX: Z20.822 Contact with and (suspected) exposure to COVID-19 (principal); R51.9 Headache, unspecified
CPT/HCPCS: 87811; C9803

== ENCOUNTER 2021-12-26 06:01 | Emergency (ER) | payer OTHER, SELFPAY ==
--- NOTE | 2021-12-26 06:30 | ECG_ITS ---
Test Reason : abdominal pain Blood Pressure : / mmHG Vent. Rate : 062 BPM Atrial Rate : 062 BPM P-R Int : 154 ms QRS Dur : 080 ms QT Int : 412 ms P-R-T Axes : 022 012 008 degrees QTc Int : 418 ms Normal sinus rhythm Low voltage QRS Borderline ECG When compared with ECG of 28-JAN-2011 19:22, Vent. rate has decreased BY 39 BPM Nonspecific T wave abnormality now evident in Anterior leads Referred By: Fiordaliza Portillo Electronically Signed By:PIPO CASAS
--- NOTE | 2021-12-26 06:51 | ED.ABDPAIN ---
HPI - Abdominal Pain General Chief Complaint: Abdominal Pain Stated Complaint: stomach pain, vomiting Time Seen by Provider: 12/26/21 06:29 Source: patient and family (spouse) Mode of arrival: ambulatory Limitations: no limitations History of Present Illness HPI narrative: 46 yo female came in for evaluation of abd. pain pain started since yesterday morning woke up with pain, pain is localized to the epigastric area with no radiation, pain is constant since yesterday but wax and wane, associated with n and v but no diarrhea, normal BM yesterday, patient is questioning egg roll she ate 2 days ago could be the reason of her symptoms, no fever or chills. food make the symptoms worse, nothing make it better, never had similar pain in the past, cholecystectomy is the only surgical history patient had. no dysuria, urine frequency, blood in the urine, no vaginal discharge, declined chance of being . Related Data Home Medications Medication Instructions Recorded Confirmed levonorgestrel 20 mcg/24 hours (7 intrauterine 03/02/20 11/18/21 yrs) 52 mg intrauterine device (Mirena) multivitamin 1 tab PO DAILY 03/02/20 11/18/21 cholecalciferol (vitamin D3) 25 25 mcg PO DAILY 03/09/21 11/18/21 mcg (1,000 unit) capsule ibuprofen 200 mg tablet (Motrin IB) 600 mg PO Q6H 11/18/21 11/18/21 Previous Rx's Medication Instructions Recorded omeprazole magnesium 20 mg 20 mg PO DAILY #20 tabs 12/26/21 tablet,delayed release (Prilosec OTC) Allergies Allergy/AdvReac Type Severity Reaction Status Date / Time bee pollen [BEE STINGS] Allergy Unknown ANAPHYLAXIS Verified 11/18/21 12:45 Penicillins Allergy Unknown coma? Verified 11/18/21 12:45 erythromycin base AdvReac Mild VOMITING Verified 11/18/21 12:45 [ERYTHROMYCIN BASE] iodine AdvReac Unknown peeling Verified 11/18/21 12:45 skin Review of Systems Review of Systems All other systems are reviewed and are negative Constitutional: Reports as per HPI and Reports no additional constitutional complaints Eyes: Reports as per HPI and Reports no additional eye complaints Reports system reviewed and no additional complaints, except as documented Cardiovascular: Reports as per HPI and Reports no additional cardiovascular complaints Respiratory: Reports as per HPI and Reports no additional respiratory complaints Gastrointestinal: Reports as per HPI and Reports no additional gastrointestinal complaints Genitourinary: Reports no additional female genitourinary complaints Musculoskeletal: Reports no additional musculoskeletal complaints Skin/Breast: Reports system reviewed and no additional complaints, except as docu Psychiatric: Reports no additional psychiatric complaints Endocrine: Reports no additional endocrine complaints Hematologic/Lymphatic: Reports no additional hematologic/lymphatic complaints Allergic/Immunologic: Reports no additional allergic/immunologic complaints Reports system reviewed and no additional complaints, except as documented and Reports Abnormal speech present [facility] Past Medical History Medical History Acquired hypothyroidism Adenomatous polyp of colon Anxiety disorder Erythema intertrigo Essential hypertension Family history of colon cancer in mother Family history of malignant neoplasm of ovary in first degree relative Family history of uterine cancer Fatty liver GERD (gastroesophageal reflux disease) Heavy menstrual bleeding History of kidney stones Impaired fasting glucose Migraine Mixed hyperlipidemia Nonspecific abnormal response to nerve stimulation Urinary incontinence Vitamin B12 deficiency Surgical History History of appendectomy History of biopsy History of bladder surgery History of endometrial biopsy History of knee surgery History of tonsillectomy History of tubal ligation Hx of cholecystectomy Hx of colonoscopy Family History Family History Father CHF (congestive heart failure) CVD (cardiovascular disease) Mother Ovarian cancer Renal cancer Maternal Grandmother Breast cancer Ovarian cancer CHF (congestive heart failure) Maternal Grandfather Liver cirrhosis Paternal Grandfather Throat cancer Diabetes mellitus Paternal Grandmother Diabetes mellitus Maternal Aunt Breast cancer Ovarian cancer Sister No problems noted. Sister No problems noted. Son No problems noted. Son No problems noted. Daughter No problems noted. Daughter No problems noted. Paternal Aunt Mental health disorder Social History Social History Household Members: Spouse and Children Housing: House Alcohol intake: current Alcohol intake frequency: does not drink Patient Tobacco Use Status: Never used Tobacco e-Cigarette/Vaping Use: Never Used Second Hand Smoke Exposure: No Advance Directives: No Advance Directives Information Provided: Yes service: No Current occupational status: employed Physical Exam ED Vital Signs: Vital Signs - 24 hr 12/26/21 07:11 Temperature 98.0 F Pulse Rate 79 Respiratory Rate 12 Blood Pressure 144/71 H Pulse Oximetry 100 Oxygen Delivery Method Room Air Vital signs have been reviewed as appeared to be correct. Blood pressure normal. Heart rate normal. Respiration rate normal. Temperature normal. Oxygen saturation normal. Appearance: Alert. Oriented X3. No acute distress. Head: Normal external exam. Normocephalic. Atraumatic. No Teixeira signs noted. No raccoon eyes noted Eyes: PERRLA. EOMI. Conjunctiva and sclera normal. Eyelids normal. ENT: TM's Normal. Pharynx normal. Uvula midline. Moist mucous membranes. No trismus noted. No drooling noted. No muffled voice noted. Neck: Normal inspection. Neck supple. FROM. No adenopathy. Thyroid Normal. No meningeal signs. No neck mass noted. CVS: Normal heart rate and rhythm. Heart sound normal. No murmurs noted. Pulses normal throughout. Respiratory: No respiratory distress. Painless inspiration. Breath sounds normal. No wheezes/rales/rhonchi noted. Chest nontender. No accessory muscle usage noted or decreased air movement noted. Abdomen: Soft, epigastric tenderness, no rebound tenderness, no guarding.. Bowel sounds normal in all 4 quadrants. No distention noted. No organomegaly noted. No visible injury noted. Back: No CVA tenderness. Full range of motion noted. Skin: Skin warm and dry. Normal skin color. Normal skin turgor. No rashes/lesions/lacerations noted. Extremities: No lower extremity edema. Extremities exhibit normal range of motion. Extremities nontender. Neuro: Oriented X 3. Cranial nerve exam: II-XII are grossly intact No motor deficit. No sensory deficit. Reflexes normal. Course Course Course Narrative: 46-YEAR-OLD FEMALE CAME IN FOR EVALUATION OF EPIGASTRIC PAIN started since yesterday after eating a questionable bad food, pain comes in waves, physical exam showed isolated epigastric tenderness but no guarding or rebound tenderness. Patient received IV hydration, Zofran, Pepcid now feels better less nauseous good appetite and able to tolerate p.o. intake in the emergency department. Slight elevation of glucose patient has no history of diabetes patient was instructed to follow-up with her primary doctor to monitor her blood sugar. Had a lengthy discussion with the patient to return if worsening of symptoms, start clears food and advance as tolerated. MDM - Abdominal Pain Lab Data Attestation: I reviewed the patient's lab results. Result diagrams: 12/26/21 06:51 12/26/21 06:51 Labs: Lab Results 12/26/21 12/26/21 12/26/21 Range/Units 06:51 06:51 06:51 WBC 8.2 (4.8-10.8) X10*3/uL RBC 4.20 (4.20-5.50) X10*6/uL Hgb 12.8 (12.0-16.0) g/dl Hct 37.8 (37.0-47.0) % MCV 90.0 (80.0-98.0) fL MCH 30.5 (27.0-33.0) pg MCHC 33.9 (31.0-35.0) g/dl RDW 12.3 (11.0-16.0) % Plt Count 339 (160-400) X10*3/uL MPV 9.2 L (9.4-12.3) fL Immature Gran % (Auto) 0.7 H (0.0-0.4) % Neut % (Auto) 75.7 H (45-73) % Lymph % (Auto) 17.6 L (20-40) % [place] % (Auto) 5.0 (2-11) % Eos % (Auto) 0.5 (0-4) % Baso % (Auto) 0.5 (0-2) % Lymph # (Auto) 1.4 (1.2-4.9) X10*3/uL [place] # (Auto) 0.4 (0.1-1.2) X10*3/uL Eos # (Auto) 0.0 (0.0-0.4) X10*3/uL Baso # (Auto) 0.0 (0.0-0.2) X10*3/uL Abs Immat Gran (auto) 0.06 H (0.00-0.03) X10*3/uL Absolute Neuts (auto) 6.2 (2.0-8.3) x10*3/uL Absolute Nucleated RBC 0.000 (0.0-0.012) X10*3/uL Nucleated RBC % (auto) 0.0 (0.0-0.2) /100WBC Sodium 138 (135-145) mmol/L Potassium 4.0 (3.3-5.1) mmol/L Chloride 103 (96-108) mmol/L Carbon Dioxide 24 (22-29) mmol/L Anion Gap 15 (12-20) BUN 10 (9-16) mg/dL Creatinine 0.85 (0.5-1.4) mg/dL Estim Creat Clear Calc TNP Estimated GFR > 60 Random Glucose 130 H (60-115) mg/dL Calcium 8.7 (8.4-10.2) mg/dL Total Bilirubin 0.7 (0.0-1.0) mg/dL Direct Bilirubin 0.3 (0.0-0.5) mg/dL AST 10 (5-31) U/L ALT 10 (0-31) U/L Alkaline Phosphatase 91 (39-117) U/L Total Protein 6.6 (6.5-8.0) g/dL Albumin 4.2 (3.5-5.0) g/dL Lipase 19 (8-78) U/L Beta HCG, Quant < 2 mIU/mL Urine Color Urine Appearance Urine pH (5.0-8.0) Ur Specific [place] (1.005-1.025) Urine Protein (Neg-Trace) mg/dL Urine Glucose (UA) (Negative) mg/dL Urine Ketones (Negative) mg/dL Urine Blood (Negative) Urine Nitrite (Negative) Ur Leukocyte Esterase (Negative) Urine RBC (0-2) /HPF Urine WBC (0-5) /HPF Ur Squamous Epith Cells (0-2) /HPF Urine Bacteria (None Seen) Hyaline Casts (0-2) /LPF 12/26/21 Range/Units 06:54 WBC (4.8-10.8) X10*3/uL RBC (4.20-5.50) X10*6/uL Hgb (12.0-16.0) g/dl Hct (37.0-47.0) % MCV (80.0-98.0) fL MCH (27.0-33.0) pg MCHC (31.0-35.0) g/dl RDW (11.0-16.0) % Plt Count (160-400) X10*3/uL MPV (9.4-12.3) fL Immature Gran % (Auto) (0.0-0.4) % Neut % (Auto) (45-73) % Lymph % (Auto) (20-40) % [place] % (Auto) (2-11) % Eos % (Auto) (0-4) % Baso % (Auto) (0-2) % Lymph # (Auto) (1.2-4.9) X10*3/uL [place] # (Auto) (0.1-1.2) X10*3/uL Eos # (Auto) (0.0-0.4) X10*3/uL Baso # (Auto) (0.0-0.2) X10*3/uL Abs Immat Gran (auto) (0.00-0.03) X10*3/uL Absolute Neuts (auto) (2.0-8.3) x10*3/uL Absolute Nucleated RBC (0.0-0.012) X10*3/uL Nucleated RBC % (auto) (0.0-0.2) /100WBC Sodium (135-145) mmol/L Potassium (3.3-5.1) mmol/L Chloride (96-108) mmol/L Carbon Dioxide (22-29) mmol/L Anion Gap (12-20) BUN (9-16) mg/dL Creatinine (0.5-1.4) mg/dL Estim Creat Clear Calc Estimated GFR Random Glucose (60-115) mg/dL Calcium (8.4-10.2) mg/dL Total Bilirubin (0.0-1.0) mg/dL Direct Bilirubin (0.0-0.5) mg/dL AST (5-31) U/L ALT (0-31) U/L Alkaline Phosphatase (39-117) U/L Total Protein (6.5-8.0) g/dL Albumin (3.5-5.0) g/dL Lipase (8-78) U/L Beta HCG, Quant mIU/mL Urine Color Yellow Urine Appearance Clear Urine pH 6.0 (5.0-8.0) Ur Specific [place] 1.010 (1.005-1.025) Urine Protein Negative (Neg-Trace) mg/dL Urine Glucose (UA) Negative (Negative) mg/dL Urine Ketones Negative (Negative) mg/dL Urine Blood Negative (Negative) Urine Nitrite Negative (Negative) Ur Leukocyte Esterase Trace H (Negative) Urine RBC 0-2 (0-2) /HPF Urine WBC 0-5 (0-5) /HPF Ur Squamous Epith Cells 0-2 (0-2) /HPF Urine Bacteria None Seen (None Seen) Hyaline Casts 0-2 (0-2) /LPF ECG Data Attestation: I personally reviewed and interpreted this ECG as follows: Interpretation: Normal sinus rhythm at 62 beats per minutes, normal intervals, normal axis deviation, nonspecific T-wave flattening in V3 and V4. Discharge Plan Discharge Clinical Impression: Gastritis, Abdominal pain Patient Disposition: Home, Self-Care Instructions: Diet for Stomach Ulcers and Gastritis (ED) Prescriptions: New omeprazole magnesium [Prilosec OTC] 20 mg tablet,delayed release (DR/EC) 20 mg PO DAILY Qty: 20 0RF No Action Mirena 20 mcg/24 hours (5 yrs) 52 mg intrauterine device intrauterine multivitamin Tablet 1 tab PO DAILY cholecalciferol (vitamin D3) 25 mcg (1,000 unit) capsule 25 mcg PO DAILY ibuprofen [Motrin IB] 200 mg tablet 600 mg PO Q6H Referrals: Risa Pitt MD [Primary Care Provider] - Stand Alone Forms: Work/School Release
[2021-12-26] MEDS: 0.9 % Sodium Chloride 1,000 ML 999 ML IV (06:56)
[2021-12-26 07:01] LABS: MANUAL DIFF FLAG NO
[2021-12-26 07:02] LABS: Basophils Percent Auto 0.5 % (0-2); Eosinophils Percent Auto 0.5 % (0-4); Hematocrit 37.8 % (37.0-47.0); Hemoglobin 12.8 g/dl (12.0-16.0); Imm Gran Abs Auto 0.06 X10*3/uL (0.00-0.03); Imm Gran Pct Auto 0.7 % (0.0-0.4); Lymphocytes Absolute Auto 1.4 X10*3/uL (1.2-4.9); Lymphocytes Percent Auto 17.6 % (20-40); Mean Corpuscular HGB Conc 33.9 g/dl (31.0-35.0); Mean Corpuscular Hemoglobin 30.5 pg (27.0-33.0); Mean Platelet Volume 9.2 fL (9.4-12.3); Monocytes Absolute Auto 0.4 X10*3/uL (0.1-1.2); Neutrophils Absolute Auto 6.2 x10*3/uL (2.0-8.3); Neutrophils Percent Auto 75.7 % (45-73); Platelet Count 339 X10*3/uL (160-400); Red Cell Distribution Width 12.3 % (11.0-16.0); White Blood Count 8.2 X10*3/uL (4.8-10.8)
[2021-12-26 07:05] LABS: Appearance Urine Clear; Color Urine Yellow; Glucose Urine UA Negative (Negative); Leukocyte Esterase Urine Trace (Negative); Nitrite Urine Negative (Negative); Urine Blood Negative (Negative); Urine Ketones Negative (Negative); Urine Protein Negative (Neg-Trace)
[2021-12-26] MEDS: Magnesium Hydrox/Alum Hydrox 30 ML ORAL.SUSP PO (07:06)
[2021-12-26] MEDS: ondansetron HCL 4 MG/2 ML VIAL IVPUSH (07:06)
[2021-12-26] MEDS: Famotidine/PF 20 MG/2 ML VIAL IVPUSH (07:06)
[2021-12-26 07:10] LABS: Bacteria Urine None Seen (None Seen); Hyaline Casts Urine 0-2 /LPF (0-2); RBC Urine 0-2 /HPF (0-2); Squamous Epithelial Cell Urine 0-2 /HPF (0-2); WBC Urine 0-5 /HPF (0-5)
[2021-12-26 07:11] VITALS: BP 144/71; PULSE 79; RESP 12; TEMP 36.7; O2SAT 100
[2021-12-26 07:27] LABS: Alanine Aminotransferase 10 U/L (0-31); Albumin Level 4.2 g/dL (3.5-5.0); Alkaline Phosphatase 91 U/L (39-117); Anion Gap 15 (12-20); Aspartate Amino Transferase 10 U/L (5-31); Bilirubin Direct 0.3 mg/dL (0.0-0.5); Bilirubin Total 0.7 mg/dL (0.0-1.0); Blood Urea Nitrogen 10 mg/dL (9-16); Calcium 8.7 mg/dL (8.4-10.2); Carbon Dioxide 24 mmol/L (22-29); Chloride 103 mmol/L (96-108); Estimated Glomerular Filt Rate > 60; Glucose Random 130 mg/dL (60-115); Lipase 19 U/L (8-78); Sodium 138 mmol/L (135-145); Total Protein 6.6 g/dL (6.5-8.0)
[2021-12-26 07:34] LABS: HCG Quantitative < 2 mIU/mL
== END 2021-12-26 08:30 | disposition home or self-care (01) ==
PROVIDERS: Emergency Medicine; Emergency Provider Emergency Medicine; PCP Internal Medicine
DX: K29.70 Gastritis, unspecified, without bleeding (principal); R10.13 Epigastric pain; I10 Essential (primary) hypertension
CPT/HCPCS: 36415; 80048; 80076; 81001; 83690; 84702; 85025; 93005; 96361; 96374; 96375; 99284; J2405

== ENCOUNTER 2021-12-27 23:15 | Emergency (ER) | payer OTHER, SELFPAY ==
--- NOTE | ~2021-12-27 | CT_ITS ---
EXAMINATION: CT ABDOMEN AND PELVIS WITHOUT CONTRAST CLINICAL INFORMATION: Mid abdominal pain COMPARISON: 09/18/2019 TECHNIQUE: Multidetector volumetric imaging was performed from the superior aspect of the liver through the pubic symphysis. Sagittal and coronal reformatted images were obtained on the technologist's workstation. This CT examination was performed using dose optimization techniques as appropriate, variously including the following: *Automated exposure control *Adjustment of mA and/or kV according to patient size (this includes techniques or standardized protocols for targeted exams where dose is matched to indication/reason for exam; i.e. extremities or head) *Use of iterative reconstruction technique DLP: 905 mGy-cm FINDINGS: LUNG BASES: The visualized lung bases are unremarkable. LIVER, GALLBLADDER, AND BILIARY TREE: The liver is normal in size, shape, and attenuation. No focal hepatic lesion or biliary ductal dilatation is present. Cholecystectomy. PANCREAS: Trace fat stranding about the pancreatic head. No pancreatic mass. No fluid collections. SPLEEN: Unremarkable. ADRENAL GLANDS: Unremarkable. KIDNEYS AND URETERS: The kidneys are normal in size, shape, and attenuation. No hydronephrosis or hydroureter. Punctate nonobstructive calculus in the lower pole right kidney.. No perinephric stranding. BLADDER: Unremarkable. GASTROINTESTINAL TRACT: Mild fat stranding in the pancreaticoduodenal groove. GI tract otherwise unremarkable. Normal appendix. ABDOMINAL WALL: No significant hernia is appreciated. LYMPH NODES: Normal. VASCULAR: Unremarkable. PELVIC VISCERA: IUD present within the uterus. Ovaries unremarkable. OSSEOUS STRUCTURES: No acute or suspicious osseous abnormalities. CT/CT abdomen pelvis wo IV con IMPRESSION: * Mild haziness/fat stranding about the pancreatic head and within the pancreaticoduodenal groove. Findings may relate to very mild/early pancreatitis or duodenitis. On the previous examination, the patient showed significant inflammation of the proximal duodenum, suggesting that the patient has a history of peptic ulcer disease. * Nonobstructive punctate calculus, lower pole right kidney. * Cholecystectomy.
[2021-12-27 23:22] VITALS: BP 137/71; PULSE 70; RESP 18; TEMP 37.3; O2SAT 96; BMI 43.6
--- NOTE | 2021-12-27 23:45 | ED_ITS ---
HPI - Abdominal Pain General Chief Complaint: Abdominal Pain Stated Complaint: Abd pain Time Seen by Provider: 12/27/21 23:45 Source: patient Mode of arrival: ambulatory Limitations: no limitations History of Present Illness HPI narrative: Patient is status post appendectomy cholecystectomy been having mid abdominal right upper quadrant pain for last 4 days associated with nausea was seen here 2 days ago lab work was normal patient went home unable to take much today because of nausea and pain got worse prior to arrival patient took PPI without much response no fever no chills no urinary symptoms no history of kidney stones Related Data Home Medications Medication Instructions Recorded Confirmed levonorgestrel 20 mcg/24 hours (7 intrauterine 03/02/20 11/18/21 yrs) 52 mg intrauterine device (Mirena) multivitamin 1 tab PO DAILY 03/02/20 11/18/21 cholecalciferol (vitamin D3) 25 25 mcg PO DAILY 03/09/21 11/18/21 mcg (1,000 unit) capsule ibuprofen 200 mg tablet (Motrin IB) 600 mg PO Q6H 11/18/21 11/18/21 Previous Rx's Medication Instructions Recorded omeprazole magnesium 20 mg 20 mg PO DAILY #20 tabs 12/26/21 tablet,delayed release (Prilosec OTC) omeprazole 40 mg capsule,delayed 40 mg PO DAILY #30 caps 12/28/21 release sucralfate 1 gram tablet 1 g PO TID #90 tabs 12/28/21 Allergies Allergy/AdvReac Type Severity Reaction Status Date / Time bee pollen [BEE STINGS] Allergy Unknown ANAPHYLAXIS Verified 12/27/21 23:22 Penicillins Allergy Unknown coma? Verified 12/27/21 23:22 erythromycin base AdvReac Mild VOMITING Verified 12/27/21 23:22 [ERYTHROMYCIN BASE] iodine AdvReac Unknown peeling Verified 12/27/21 23:22 skin Review of Systems Review of Systems Yes all other systems are reviewed and are negative [facility] Past Medical History Medical History Acquired hypothyroidism Adenomatous polyp of colon Anxiety disorder Erythema intertrigo Essential hypertension Family history of colon cancer in mother Family history of malignant neoplasm of ovary in first degree relative Family history of uterine cancer Fatty liver GERD (gastroesophageal reflux disease) Heavy menstrual bleeding History of kidney stones Impaired fasting glucose Migraine Mixed hyperlipidemia Nonspecific abnormal response to nerve stimulation Urinary incontinence Vitamin B12 deficiency Surgical History History of appendectomy History of biopsy History of bladder surgery History of endometrial biopsy History of knee surgery History of tonsillectomy History of tubal ligation Hx of cholecystectomy Hx of colonoscopy Family History Family History Father CHF (congestive heart failure) CVD (cardiovascular disease) Mother Ovarian cancer Renal cancer Maternal Grandmother Breast cancer Ovarian cancer CHF (congestive heart failure) Maternal Grandfather Liver cirrhosis Paternal Grandfather Throat cancer Diabetes mellitus Paternal Grandmother Diabetes mellitus Maternal Aunt Breast cancer Ovarian cancer Sister No problems noted. Sister No problems noted. Son No problems noted. Son No problems noted. Daughter No problems noted. Daughter No problems noted. Paternal Aunt Mental health disorder Social History Social History Household Members: Spouse and Children Housing: House Alcohol intake: current Alcohol intake frequency: does not drink Patient Tobacco Use Status: Never used Tobacco e-Cigarette/Vaping Use: Never Used Second Hand Smoke Exposure: No Advance Directives: No Advance Directives Information Provided: No service: No Current occupational status: employed Physical Exam ED Vital Signs: Vital Signs - 24 hr 12/27/21 23:22 12/28/21 00:55 Temperature 99.2 F Pulse Rate 70 Respiratory Rate 18 16 Blood Pressure 137/71 Pulse Oximetry 96 Oxygen Delivery Method Room Air BMI result Body Mass Index 43.6 Appearance: Alert. Oriented X3. No acute distress. Eyes: No pallor/ icterus ENT: Pharynx normal. Oral Mucosa moist Neck: Normal inspection. Neck supple. CVS: Normal heart rate and rhythm. Pulses normal. Respiratory: No respiratory distress. Equal air entry bilateral, no wheezing/rales/rhonchi Abdomen: Soft , tenderness epigastric right upper quadrant and mid abdomen area no guarding rebound tenderness Bowel sounds are present, no mass palpable, no CVA tenderness Skin: Skin warm and dry. Normal skin color. Normal skin turgor. Extremities: No lower extremity edema. No calf tenderness Neuro: Oriented X 3. MDM - Abdominal Pain MDM Narrative Medical decision making narrative: [address] scan abdomen showed duedenitis previous liver functions and lipase were normal waiting for the repeat draw patient started on Prilosec will continue same will add sucralfate. Patient advised to follow-up with civil engineering design draftsperson for further evaluation including endoscopy Chemistry stable discharge patient home Differential Diagnosis Differential diagnosis: Likely diverticulitis, gastritis, pancreatitis, peptic ulcer disease and renal colic Medical Records Attestation: I reviewed the patient's medical records. Lab Data Attestation: I reviewed the patient's lab results. Result diagrams: 12/28/21 00:05 12/28/21 00:50 Labs: Lab Results 12/28/21 12/28/21 12/28/21 Range/Units 00:05 00:50 00:50 WBC 10.3 (4.8-10.8) X10*3/uL RBC 4.22 (4.20-5.50) X10*6/uL Hgb 12.8 (12.0-16.0) g/dl Hct 38.3 (37.0-47.0) % MCV 90.8 (80.0-98.0) fL MCH 30.3 (27.0-33.0) pg MCHC 33.4 (31.0-35.0) g/dl RDW 12.4 (11.0-16.0) % Plt Count 311 (160-400) X10*3/uL MPV 9.1 L (9.4-12.3) fL Immature Gran % (Auto) 0.4 (0.0-0.4) % Neut % (Auto) 73.0 (45-73) % Lymph % (Auto) 18.7 L (20-40) % [place] % (Auto) 5.7 (2-11) % Eos % (Auto) 1.7 (0-4) % Baso % (Auto) 0.5 (0-2) % Lymph # (Auto) 1.9 (1.2-4.9) X10*3/uL [place] # (Auto) 0.6 (0.1-1.2) X10*3/uL Eos # (Auto) 0.2 (0.0-0.4) X10*3/uL Baso # (Auto) 0.1 (0.0-0.2) X10*3/uL Abs Immat Gran (auto) 0.04 H (0.00-0.03) X10*3/uL Absolute Neuts (auto) 7.5 (2.0-8.3) x10*3/uL Absolute Nucleated RBC 0.000 (0.0-0.012) X10*3/uL Nucleated RBC % (auto) 0.0 (0.0-0.2) /100WBC Sodium 138 (135-145) mmol/L Potassium 4.2 (3.3-5.1) mmol/L Chloride 102 (96-108) mmol/L Carbon Dioxide 25 (22-29) mmol/L Anion Gap 15 (12-20) BUN 16 D (9-16) mg/dL Creatinine 0.92 (0.5-1.4) mg/dL Estim Creat Clear Calc 86.5 Estimated GFR > 60 Random Glucose 114 (60-115) mg/dL Calcium 9.1 (8.4-10.2) mg/dL Total Bilirubin 0.6 (0.0-1.0) mg/dL AST 16 D (5-31) U/L ALT 19 (0-31) U/L Alkaline Phosphatase 98 (39-117) U/L Total Protein 7.3 (6.5-8.0) g/dL Albumin 4.6 (3.5-5.0) g/dL Lipase 37 (8-78) U/L Urine Color Yellow Urine Appearance Clear Urine pH 6.5 (5.0-9.0) Ur Specific [place] 1.020 (1.005-1.025) Urine Protein Negative (Neg-Trace) mg/dL Urine Glucose (UA) Negative (Negative) mg/dL Urine Ketones 15 (Negative) mg/dL Urine Blood Negative (Negative) Urine Nitrite Negative (Negative) Ur Leukocyte Esterase Trace H (Negative) Urine RBC 0-2 (0-2) /HPF Urine WBC 0-5 (0-5) /HPF Ur Squamous Epith Cells 0-2 (0-2) /HPF Urine Bacteria None Seen (None Seen) Hyaline Casts 0-2 (0-2) /LPF Discharge Plan Discharge Clinical Impression: Duodenitis Patient Disposition: Home, Self-Care Instructions: Duodenitis (ED) Additional Instructions: Avoid fried food Increase Prilosec to 40 mg daily Sucralfate 1 tablet 3 times a day half an hour before meals Follow-up with civil engineering design draftsperson for endoscopy and further evaluation Do not take ibuprofen Prescriptions: New omeprazole 40 mg capsule,delayed release(DR/EC) 40 mg PO DAILY Qty: 30 3RF sucralfate 1 gram tablet 1 g PO TID Qty: 90 0RF No Action omeprazole magnesium [Prilosec OTC] 20 mg tablet,delayed release (DR/EC) 20 mg PO DAILY Qty: 20 0RF Mirena 20 mcg/24 hours (5 yrs) 52 mg intrauterine device intrauterine multivitamin Tablet 1 tab PO DAILY cholecalciferol (vitamin D3) 25 mcg (1,000 unit) capsule 25 mcg PO DAILY ibuprofen [Motrin IB] 200 mg tablet 600 mg PO Q6H Referrals: Candis Ramsay MD [Physician] - 2 weeks
[2021-12-28 00:08] LABS: MANUAL DIFF FLAG NO
[2021-12-28 00:09] LABS: Basophils Absolute Auto 0.1 X10*3/uL (0.0-0.2); Basophils Percent Auto 0.5 % (0-2); Eosinophils Absolute Auto 0.2 X10*3/uL (0.0-0.4); Eosinophils Percent Auto 1.7 % (0-4); Hematocrit 38.3 % (37.0-47.0); Hemoglobin 12.8 g/dl (12.0-16.0); Imm Gran Abs Auto 0.04 X10*3/uL (0.00-0.03); Imm Gran Pct Auto 0.4 % (0.0-0.4); Lymphocytes Absolute Auto 1.9 X10*3/uL (1.2-4.9); Lymphocytes Percent Auto 18.7 % (20-40); Mean Corpuscular HGB Conc 33.4 g/dl (31.0-35.0); Mean Corpuscular Hemoglobin 30.3 pg (27.0-33.0); Mean Corpuscular Volume 90.8 fL (80.0-98.0); Mean Platelet Volume 9.1 fL (9.4-12.3); Monocytes Absolute Auto 0.6 X10*3/uL (0.1-1.2); Monocytes Percent Auto 5.7 % (2-11); Neutrophils Absolute Auto 7.5 x10*3/uL (2.0-8.3); Platelet Count 311 X10*3/uL (160-400); Red Blood Count 4.22 X10*6/uL (4.20-5.50); Red Cell Distribution Width 12.4 % (11.0-16.0); White Blood Count 10.3 X10*3/uL (4.8-10.8)
[2021-12-28 00:55] VITALS: RESP 16
[2021-12-28] MEDS: ondansetron HCL 4 MG/2 ML VIAL IVPUSH (00:55)
[2021-12-28] MEDS: 0.9 % Sodium Chloride 1,000 ML 999 ML IV (00:55)
[2021-12-28] MEDS: Morphine Sulfate 4 MG/ML CARTRIDGE IVPUSH (00:55)
[2021-12-28 01:13] LABS: Alanine Aminotransferase 19 U/L (0-31); Albumin Level 4.6 g/dL (3.5-5.0); Alkaline Phosphatase 98 U/L (39-117); Anion Gap 15 (12-20); Aspartate Amino Transferase 16 U/L (5-31); Bilirubin Total 0.6 mg/dL (0.0-1.0); Blood Urea Nitrogen 16 mg/dL (9-16); Calcium 9.1 mg/dL (8.4-10.2); Carbon Dioxide 25 mmol/L (22-29); Chloride 102 mmol/L (96-108); Creatinine Clr Calc Pharmacy 86.5; Estimated Glomerular Filt Rate > 60; Glucose Random 114 mg/dL (60-115); Lipase 37 U/L (8-78); Potassium 4.2 mmol/L (3.3-5.1); Sodium 138 mmol/L (135-145); Total Protein 7.3 g/dL (6.5-8.0)
[2021-12-28 01:15] LABS: Appearance Urine Clear; Bacteria Urine None Seen (None Seen); Color Urine Yellow; Glucose Urine UA Negative (Negative); Hyaline Casts Urine 0-2 /LPF (0-2); Leukocyte Esterase Urine Trace (Negative); Nitrite Urine Negative (Negative); PH 6.5 (5.0-9.0); RBC Urine 0-2 /HPF (0-2); Squamous Epithelial Cell Urine 0-2 /HPF (0-2); Urine Blood Negative (Negative); Urine Ketones 15 mg/dL (Negative); Urine Protein Negative (Neg-Trace); WBC Urine 0-5 /HPF (0-5)
[2021-12-28] MEDS: Lidocaine HCl Viscous 2 % 15 ML SOLUTION MUCOUS MEM (01:31)
[2021-12-28] MEDS: Magnesium Hydrox/Alum Hydrox 30 ML ORAL.SUSP PO (01:31)
== END 2021-12-28 01:50 | disposition home or self-care (01) ==
PROVIDERS: Emergency Provider Internal Medicine; PCP Internal Medicine
DX: K29.80 Duodenitis without bleeding (principal); R10.9 Unspecified abdominal pain; R10.11 Right upper quadrant pain; Z79.899 Other long term (current) drug therapy
CPT/HCPCS: 36415; 74176; 80053; 81001; 83690; 85025; 96374; 96375; 99283; 99284; J2270; J2405

== ENCOUNTER → 2022-02-28 09:24 | Outpatient (BNVA) | payer OTHER, SELFPAY | PROVIDERS: PCP Internal Medicine; Visit Provider Nurse Practitioner Family | DX: K21.9 Gastro-esophageal reflux disease without esophagitis (principal); R10.13 Epigastric pain | CPT/HCPCS: 99212 ==

== ENCOUNTER 2022-04-10 12:00 | Day surgery (SDC) | payer OTHER, SELFPAY ==
[2022-04-04 12:56] VITALS: BMI 44.7
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
[2022-04-10 13:02] VITALS: BP 122/53; PULSE 77; RESP 16; TEMP 36.3; O2SAT 100
[2022-04-10] MEDS: Lactated Ringers 1,000 ML 100 ML IVCONT (13:02)
--- NOTE | 2022-04-10 13:55 | P.HPSUR_ITS ---
Pre-Procedural Eval Section A Date of Service: 04/10/22 The patient is an INPATIENT: No The History & Physical has been completed within 30 days and I have reviewed it.: No Section B Chief Complaint: reflux,epigastric pain Details of Present Illness: epigastric pain, early satiety Relevant Family History (Specify if Yes): No Relevant Social History: None Present Medications: see Short Stay Collaborative assessment Medical History: Significant History (Acquired hypothyroidism Adenomatous polyp of colon Anxiety disorder Erythema intertrigo Essential hypertension Family history of colon cancer in mother Family history of malignant neoplasm of ovary in first degree relative Family history of uterine cancer Fatty liver GERD (gas troesophageal reflux di) History of Previous Operations: Relevant previous surgery/procedure and date(s) (History of appendectomy History of biopsy History of bladder surgery History of endometrial biopsy History of knee surgery History of tonsillectomy History of tubal ligation Hx of cholecystectomy Hx of colonoscopy) Allergies: Allergies Allergy/AdvReac Type Severity Reaction Status Date / Time bee pollen [BEE STINGS] Allergy Severe ANAPHYLAXIS Verified 04/04/22 12:51 Penicillins Allergy Severe ? coma Verified 04/04/22 12:51 iodine AdvReac Intermediate peeling Verified 04/04/22 12:51 skin erythromycin base AdvReac Mild VOMITING Verified 02/28/22 09:33 [ERYTHROMYCIN BASE] Review of Systems Sugical H&P ROS: Negative: Constitution, Cardiovascular, Respiratory and Gastrointestinal Exam Surgical H&P Exam: Normal: Heart, Normal: Lungs, Normal: Extremities and Normal: Abdomen Plan Diagnosis/Plan: Unchanged I have reviewed the history and physical and performed a pertinent physical examination on my patient. No changes have occurred unless specified. Time Spent With Patient Time: Total time managing care of this patient today ____ minutes.
--- NOTE | 2022-04-10 14:02 | PM.OP ---
Brief Operative Note Date of Service: 04/10/22 Pre-op diagnosis: epigastric pain, nausea, buffy;y satiety Post-op diagnosis: other (GERD, gastritis, multiple gastric polyps, duodenitis) Procedure: UPPER GI ENDOSCOPY WITH BIOPSIES Surgeon: Gus Paul MD Anesthesia: MAC Was an Dynamics Ax Technical Architect used for this Procedure?: Yes Dynamics Ax Technical Architect: Demian Fair Estimated blood loss (mL): 0 Pathology: other (A) BX Duodenal Fold B) BX Gastric Antrum (R/O H.Pylori) C) Gastric Polyps D) BX Gastric Body E) BC GE Junction (R/O Araya's)) Condition: stable Disposition: PACU
[2022-04-10 14:25] VITALS: BP 106/55; PULSE 89; RESP 16; TEMP 37.1; O2SAT 95
--- NOTE | 2022-04-10 14:26 | W.PM.OPN ---
Operative Note Operative Note Date of Service: 04/10/22 Narrative: Pre-op diagnosis: epigastric pain, nausea, buffy;y satiety Post-op diagnosis:?other (GERD, gastritis, multiple gastric polyps, duodenitis) Surgeon: Gus Paul MD Anesthesia:?MAC FLEXIBLE TRANSORAL UPPER GASTROINTESTINAL ENDOSCOPY WITH BIOPSIES Consent: Indications for the procedure and potential complications of bleeding, perforation, reaction to medications and missed diagnosis were discussed with the patient and informed consent was obtained. Instrument: Olympus GIF H 190 mid size upper endoscope Monitoring: Vital signs and clinical assessment, continuous EKG monitoring, Pulse oximetry, Carbon Dioxide monitoring and blood pressure monitoring were done throughout the procedure. Procedure: The patient was placed in the left lateral decubitis position and pre-procedure medications were administered and a bite block was placed. The endoscope was inserted into the mouth and advanced under direct vision to the third part of duodenum. A careful inspection was made as the upper endoscope was withdrawn including a retroflexed examination of the proximal stomach; Findings and interventions are described below. Findings: Larynx: Normal Esophagus: GE junction at 40 cms. 1 cms tongue of suspected Araya's - biopsied. Stomach: Multiple 3-5 mm benign appearing polyps in the gastric body - biopsied. Moderate diffuse gastric erythema. Biopsies were obtained from the gastric antrum and body. Grade 2 flap valve on retroflexed examination of the cardia. Duodenum: Patchy erythema with prominent and edematous folds in the apex of the bulb with luminal narrowing - multiple biopsies were obtained. Patchy erythema with prominent and edematous folds in the proximal descending duodenum. Intervention: Biopsies as noted above Impression and Post Procedure Diagnosis: Endoscopy Findings: ESOPHAGUS: GE junction at 40 cms. 1 cms tongue of suspected Araya's - biopsied. STOMACH: Multiple 3-5 mm benign appearing polyps in the gastric body - biopsied. Moderate diffuse gastric erythema. Biopsies were obtained from the gastric antrum and body. DUODENUM: Patchy erythema with prominent and edematous folds in the apex of the bulb with luminal narrowing - multiple biopsies were obtained. Patchy erythema with prominent and edematous folds in the proximal descending duodenum. Plan: Await pathology results Patient has an appointment on 04/28/22 in the GI Clinic with Sabrina Hill FNP-BC. Above findings were reviewed with the patient and Gastritis and Gastric Polyps handouts were given in the discharge area
[2022-04-10 14:40] VITALS: BP 130/69; PULSE 71; RESP 21; TEMP 36.5; O2SAT 97
== END 2022-04-10 15:45 | disposition home or self-care (01) ==
PROVIDERS: PCP Internal Medicine; Visit Provider Internal Medicine Gastroenterology
DX: K29.50 Unspecified chronic gastritis without bleeding (principal); K21.9 Gastro-esophageal reflux disease without esophagitis; K29.80 Duodenitis without bleeding; K31.7 Polyp of stomach and duodenum; R68.81 Early satiety; I10 Essential (primary) hypertension; E03.9 Hypothyroidism, unspecified; F41.1 Generalized anxiety disorder; Z80.0 Family history of malignant neoplasm of digestive organs; Z88.0 Allergy status to penicillin; Z91.041 Radiographic dye allergy status; Z88.1 Allergy status to other antibiotic agents
CPT/HCPCS: 43239; 88305; 88342

== ENCOUNTER 2022-04-21 17:02 | Outpatient (REF) | payer OTHER, SELFPAY ==
[2022-04-21 17:50] LABS: Influenza A PCR NEGATIVE (Negative); Influenza B PCR NEGATIVE (Negative); Resp Syncy Virus RNA Qual PCR NEGATIVE (Negative); SARS COV2 PCR INHOUSE NEGATIVE (Negative)
== END 2022-04-21 17:03 | disposition home or self-care (01) ==
LOC: HO.LNP 17:02
PROVIDERS: Visit Provider Emergency Medicine
DX: Z20.822 Contact with and (suspected) exposure to COVID-19 (principal); R68.89 Other general symptoms and signs
CPT/HCPCS: 0241U

== ENCOUNTER → 2022-05-03 08:03 | Outpatient (BNVA) | payer OTHER, SELFPAY | PROVIDERS: PCP Internal Medicine; Visit Provider Nurse Practitioner Family | DX: K21.00 Gastro-esophageal reflux disease with esophagitis, without bleeding (principal) ==

== ENCOUNTER 2022-07-17 08:00 | Outpatient (RCR) | payer OTHER, SELFPAY ==
--- NOTE | 2022-06-26 15:59 | MHC.PT.EP ---
[facility] [place] Office [place] Office [place] Office [address] Arelis Lopez [address] [phone] F: [phone] F: [phone] F: [phone] F: [phone] Physical Therapy Plan of Care Date of Evaluation: Date of Surgery: Diagnosis: Strain of unspecified muscle, fascia and tendon at shoulder and upper arm level, right arm Assessment: Pt is a 47 y/o RHD female referred to PT for strain of upper R arm resulting in decreased tolerance for reaching her back, dressing her pants and pullovers, reaching high shelves, as well as pulling and supporting her weight on her arm secondary to decreased R shoulder ROM and strength, TTP of lateral R arm, decreased scapular posture, and pain with activity. Pt is deemed an appropriate candidate to receive skilled PT services to address their physical impairments in order to improve their functional ability. Frequency and Duration: The patient will be seen 2x / wk x 5 wks. Short Term Goals: Initiate HEP. Improve baseline pain with activity to < 6/10; initial: 9/10. Ophthalmic Medical Technician Goals: I with Home program. Pt will be able to dress her pants with managed Sx; initial: 8/10 difficulty/ pain. Pt will improve R shoulder IR MMT to by at least 1/2 MMT grade; initial 4-/5 limited by pain. Relatively symmetrical shoulder AROM achieved. Improve SPADI by at least 13 points in order to demonstrate improved function. Treatment Plan: Modalities to reduce pain, spasms and effusion. Manual therapy to restore motion and function. Therapeutic exercise to improve strength and flexibility. Neuromuscular re-education for posture and balance. Therapeutic activities to return to functional activities of daily living. Electronically signed by: Ray Hu PT. Please sign and return to therapist. Thank you for your referral.
--- NOTE | 2022-09-12 10:40 | MHC.PT.DC ---
[facility] [place] [facility] [place] Office [place] Office [address] Arelis Lopez [address] [phone] F: [phone] F: [phone] F: [phone] F: [phone] Physical Therapy Discharge Report Diagnosis: Strain of unspecified muscle, fascia and tendon at shoulder and upper arm level, right arm Date of Surgery: Date of Evaluation: 06/26/22 Date of Discharge: 09/12/22 Treatments to Date: 4 Cancellations to Date: 1 No Shows to Date: 1 Discharge Status: Patient Elected to Stop Discharge Summary: 07/17: Decreased program today d/t increased pain over the past few days. Trialed TET to offload deltoid and ant shoulder. No adverse effects. Trialed Estim for pain as well; progress NV as tolerated; she has an ortho consult next month. Ed on TET wear/ removal. 07/10: Good sanya for activities. no adverse effects. Pt reports her arm is a little more sore but feels more functional in a way; demonstrates good early HEP compliance. NV gently encouraged IR ROM. Pt was surprised that she was able to not only perform her HEP but progress some with managed Sx today; reviewed home program. No adverse effects. ended with CP x 8 min untimed. TTP biceps area which is where she reports her pain. No pain with B ER. Electronically signed by: Ray Hu PT. Please sign and return to therapist. Thank you for your referral.
== END 2022-09-12 10:40 | disposition home or self-care (01) ==
LOC: HO.PTCHIC 08:00
PROVIDERS: PCP Internal Medicine; Visit Provider Internal Medicine
DX: S46.911D Strain of unspecified muscle, fascia and tendon at shoulder and upper arm level, right arm, subsequent encounter (principal)
CPT/HCPCS: 97014; 97110; 97161

== ENCOUNTER 2022-08-07 08:38 | Outpatient (REF) | payer OTHER, SELFPAY ==
--- NOTE | ~2022-08-07 | XR_ITS ---
EXAMINATION: XR HUMERUS, RIGHT CLINICAL INFORMATION: Pain COMPARISON: None available. TECHNIQUE: AP and lateral views of the right humerus. FINDINGS: The bones and soft tissues are normal. No fracture. Imaged portions of the shoulder and elbow are unremarkable. XR/XR humerus RT IMPRESSION: Normal right humerus.
== END 2022-08-07 08:39 | disposition home or self-care (01) ==
LOC: HO.HOSX 08:38
PROVIDERS: Visit Provider Physician Assistant
DX: M75.101 Unspecified rotator cuff tear or rupture of right shoulder, not specified as traumatic (principal)
CPT/HCPCS: 20610; 73060; J1020

== ENCOUNTER 2022-08-15 09:37 | Outpatient (REF) | payer OTHER, SELFPAY ==
[2022-08-17 00:29] LABS: HPV mRNA E6/E7 rflx Not Detected (Not Detected)
== END 2022-08-15 09:38 | disposition home or self-care (01) ==
LOC: HO.LNP 09:37
PROVIDERS: PCP Internal Medicine; Visit Provider Advanced Practice Midwife
DX: Z01.419 Encounter for gynecological examination (general) (routine) without abnormal findings (principal); T19.2XXA Foreign body in vulva and vagina, initial encounter; R21 Rash and other nonspecific skin eruption; L29.9 Pruritus, unspecified; Z97.5 Presence of (intrauterine) contraceptive device
CPT/HCPCS: 87624; 88142

== ENCOUNTER 2022-09-05 07:47 | Outpatient (REF) | payer OTHER, SELFPAY ==
--- NOTE | ~2022-09-05 | CT_ITS ---
EXAMINATION: CT SHOULDER WITHOUT CONTRAST, RIGHT CLINICAL INFORMATION: Right rotator cuff tendon tear. COMPARISON: Right humerus radiographs dated 08/07/2022. TECHNIQUE: Contiguous axial CT images of the right shoulder were obtained without contrast. Sagittal and coronal reformats were provided and reviewed. This CT examination was performed using dose optimization techniques as appropriate, variously including the following: *Automated exposure control *Adjustment of mA and/or kV according to patient size (this includes techniques or standardized protocols for targeted exams where dose is matched to indication/reason for exam; i.e. extremities or head) *Use of iterative reconstruction technique DLP: 336 mGy-cm FINDINGS: No acute fracture or dislocation. Humeral head well seated within the glenoid. No glenohumeral joint space narrowing or marginal osteophytes. Tiny acromioclavicular marginal osteophytes. No concerning lytic or blastic osseous lesion. No significant joint effusion. No abnormal soft tissue mass or fluid collection. The rotator cuff tendons are grossly intact, however, evaluation is significantly limited on CT examination and partial tearing cannot be excluded. The remaining muscles and tendons are grossly intact. No right axillary lymphadenopathy. The visualized right lung is clear. CT/CT shoulder RT wo IV con IMPRESSION: 1. No acute fracture or dislocation. 2. The rotator cuff tendons are grossly intact however evaluation is significantly limited on CT examination and partial tearing cannot be excluded. 3. Tiny AC joint osteoarthritis.
== END 2022-09-05 07:48 | disposition home or self-care (01) ==
LOC: HO.CT 07:47
PROVIDERS: PCP Internal Medicine; Visit Provider Physician Assistant
DX: M75.101 Unspecified rotator cuff tear or rupture of right shoulder, not specified as traumatic (principal)
CPT/HCPCS: 73200

== ENCOUNTER → 2022-09-12 08:37 | Outpatient (BNVA) | payer OTHER, SELFPAY | PROVIDERS: PCP Internal Medicine; Visit Provider Physician Assistant ==

== ENCOUNTER 2022-09-29 11:51 | Outpatient (REF) | payer OTHER, SELFPAY ==
[2022-09-29 14:48] LABS: Appearance Urine Cloudy; Color Urine Yellow; Glucose Urine UA Negative (Negative); Leukocyte Esterase Urine Small (1+) (Negative); Nitrite Urine Negative (Negative); PH 6.5 (5.0-9.0); UMIC TRIGGER UACC YES; Urine Blood Small (1+) (Negative); Urine Ketones Negative (Negative); Urine Protein 30 (1+) mg/dL (Neg-Trace)
[2022-09-29 14:57] LABS: Bacteria Urine 4+ (None Seen); Hyaline Casts Urine 0-2 /LPF (0-2); Other Crystals Urine Present; UACC Culture Trigger YES; WBC Urine >50 /HPF (0-5)
== END 2022-09-29 11:52 | disposition home or self-care (01) ==
LOC: HO.LAB 11:51
PROVIDERS: Visit Provider Nurse Practitioner Family
DX: R30.0 Dysuria (principal)
CPT/HCPCS: 81001; 87086; 87088; 87186

== ENCOUNTER 2023-03-11 14:23 | Emergency (ER) | payer SELFPAY ==
[2023-03-11 14:44] VITALS: BP 143/51; PULSE 81; RESP 20; TEMP 36.8; O2SAT 98; BMI 49.7
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
[2023-03-11 15:48] LABS: Influenza A PCR NEGATIVE (Negative); Influenza B PCR NEGATIVE (Negative); Resp Syncy Virus RNA Qual PCR POSITIVE (Negative); SARS COV2 PCR INHOUSE NEGATIVE (Negative)
== END 2023-03-11 16:05 | disposition home or self-care (01) ==
PROVIDERS: Physician Assistant Medical; Emergency Provider Emergency Medicine Emergency Medical Services; PCP Internal Medicine
DX: J22 Unspecified acute lower respiratory infection (principal); H72.92 Unspecified perforation of tympanic membrane, left ear; Z20.822 Contact with and (suspected) exposure to COVID-19; Z20.828 Contact with and (suspected) exposure to other viral communicable diseases
CPT/HCPCS: 0241U; 99283

== ENCOUNTER 2023-09-19 11:13 | Outpatient (AMB) | payer OTHER, SELFPAY ==
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
[2023-09-19 11:32] VITALS: BP 128/78; BMI 48.2
== END 2023-09-19 13:00 | disposition home or self-care (01) ==
PROVIDERS: PCP Internal Medicine; Visit Provider Advanced Practice Midwife
DX: Z01.419 Encounter for gynecological examination (general) (routine) without abnormal findings (principal); R32 Unspecified urinary incontinence; N95.1 Menopausal and female climacteric states; Z97.5 Presence of (intrauterine) contraceptive device
CPT/HCPCS: 99396

== ENCOUNTER → 2023-09-19 11:13 | Outpatient (BNVA) | payer OTHER, SELFPAY | PROVIDERS: PCP Internal Medicine; Visit Provider Advanced Practice Midwife ==

== ENCOUNTER 2023-09-27 08:22 | Outpatient (AMB) | payer OTHER, SELFPAY ==
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
[2023-09-27 08:33] VITALS: BP 100/72; PULSE 72; O2SAT 96; BMI 48.9
== END 2023-09-27 09:59 | disposition home or self-care (01) ==
PROVIDERS: PCP Internal Medicine; Visit Provider Internal Medicine
DX: Z00.01 Encounter for general adult medical examination with abnormal findings (principal); F41.1 Generalized anxiety disorder; R73.01 Impaired fasting glucose; D12.6 Benign neoplasm of colon, unspecified; E03.9 Hypothyroidism, unspecified; R32 Unspecified urinary incontinence
CPT/HCPCS: 99213; 99396

== ENCOUNTER 2023-09-27 10:00 | Outpatient (REF) | payer OTHER, SELFPAY ==
[2023-09-27 14:14] LABS: Alanine Aminotransferase 28 U/L (0-31); Anion Gap 16 (12-20); Aspartate Amino Transferase 21 U/L (5-31); Blood Urea Nitrogen 8 mg/dL (9-16); Calcium 9.1 mg/dL (8.4-10.2); Carbon Dioxide 23 mmol/L (22-29); Chloride 104 mmol/L (96-108); Cholesterol 178 mg/dL (<200); Estimated Glomerular Filt Rate > 60; Glucose Fasting 94 mg/dL (60-99); HDL Cholesterol 55 mg/dL (>40); LDL Cholesterol Calculated 107 mg/dL (<100); Potassium 4.7 mmol/L (3.3-5.1); Sodium 138 mmol/L (135-145); Triglycerides 84 mg/dL (<150)
[2023-09-27 14:32] LABS: Free T4 (Free Thyroxine) 0.89 ng/dL (0.71-1.85); Thyroid Stimulating Hormone 4.32 uIU/mL (0.32-4.0); Vitamin D 25-OH Total 30.5 ng/mL (>30)
[2023-09-28 16:49] LABS: Follicle Stimulating Hormone 4.5 mIU/mL
== END 2023-09-27 10:01 | disposition home or self-care (01) ==
LOC: HO.HMGCLDS 10:00
PROVIDERS: PCP Internal Medicine; Referring Provider Advanced Practice Midwife; Visit Provider Internal Medicine
DX: I10 Essential (primary) hypertension (principal); E78.2 Mixed hyperlipidemia; R73.01 Impaired fasting glucose; E03.9 Hypothyroidism, unspecified; R32 Unspecified urinary incontinence; N95.1 Menopausal and female climacteric states; Z97.5 Presence of (intrauterine) contraceptive device; Z12.4 Encounter for screening for malignant neoplasm of cervix
CPT/HCPCS: 36415; 80048; 80061; 82306; 83001; 84439; 84443; 84450; 84460

== ENCOUNTER 2023-10-02 11:14 | Outpatient (AMB) | payer OTHER, SELFPAY ==
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
== END 2023-10-02 11:49 | disposition home or self-care (01) ==
LOC: HO.HWSM 11:14
PROVIDERS: PCP Internal Medicine; Visit Provider Advanced Practice Midwife
DX: N95.1 Menopausal and female climacteric states (principal)
CPT/HCPCS: 99213

== ENCOUNTER → 2023-10-02 11:14 | Outpatient (BNVA) | payer OTHER, SELFPAY | PROVIDERS: PCP Internal Medicine; Visit Provider Advanced Practice Midwife ==

== ENCOUNTER 2023-10-09 08:10 | Outpatient (REF) | payer OTHER, SELFPAY ==
--- NOTE | ~2023-10-09 | MM_ITS ---
EXAMINATION: MM SCREENING DIGITAL BREAST TOMOSYNTHESIS, BILATERAL CLINICAL INFORMATION: Screening. Asymptomatic. COMPARISON: Mammography: This study is compared with prior exams dating back to 2018. TECHNIQUE: Digital breast tomosynthesis is performed in both the craniocaudal and mediolateral oblique views along with computer-aided detection (CAD). Synthesized 2D images are generated from the tomosynthesis. FINDINGS: There are scattered areas of fibroglandular density (ACR BI-RADS breast composition Category b). There are bilateral upper outer quadrant focal asymmetries which warrant additional mammographic and targeted sonographic imaging. There are no, abnormal calcifications in either breast. MM/MM tomosynthesis screening BI IMPRESSION: Bilateral focal asymmetries warrant additional mammographic and targeted sonographic imaging. ASSESSMENT: BI-RADS BI-RADS 0 - Incomplete: Needs additional Imaging. RECOMMENDATION: 1. Additional views of both breasts. 2. Targeted ultrasound if warranted after review of the additional views. 3. Radiology department staff will contact the patient for additional imaging. Additional Imaging required This examination should not preclude the clinical evaluation of a suspicious palpable abnormality. This patient's information was entered into a reminder system with a target due date for their next mammogram.
== END 2023-10-09 08:11 | disposition home or self-care (01) ==
LOC: HO.MAMMO 08:10
PROVIDERS: PCP Internal Medicine; Visit Provider Advanced Practice Midwife
DX: Z12.31 Encounter for screening mammogram for malignant neoplasm of breast (principal)
CPT/HCPCS: 77063; 77067

== ENCOUNTER → 2023-10-09 08:15 | Outpatient (BNV) | payer OTHER, SELFPAY | PROVIDERS: PCP Internal Medicine; Visit Provider Radiology Diagnostic Radiology | DX: Z12.31 Encounter for screening mammogram for malignant neoplasm of breast (principal) | CPT/HCPCS: 77063; 77067 ==

== ENCOUNTER 2023-10-19 08:46 | Outpatient (AMB) | payer OTHER, SELFPAY ==
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
== END 2023-10-19 13:00 | disposition home or self-care (01) ==
LOC: HO.HMGC 08:46
PROVIDERS: PCP Internal Medicine; Visit Provider Internal Medicine
DX: F41.1 Generalized anxiety disorder (principal)
CPT/HCPCS: 99214

== ENCOUNTER 2023-12-05 10:47 | Outpatient (AMB) | payer OTHER, SELFPAY ==
[2023-12-05 11:21] VITALS: BP 140/78; BMI 48.9
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
== END 2023-12-05 12:00 | disposition home or self-care (01) ==
LOC: HO.HWSM 10:47
PROVIDERS: PCP Internal Medicine; Visit Provider Advanced Practice Midwife
DX: N95.1 Menopausal and female climacteric states (principal); Z97.5 Presence of (intrauterine) contraceptive device; R32 Unspecified urinary incontinence; R73.01 Impaired fasting glucose; E03.9 Hypothyroidism, unspecified
CPT/HCPCS: 99213

== ENCOUNTER → 2023-12-05 10:47 | Outpatient (BNVA) | payer OTHER, SELFPAY | PROVIDERS: PCP Internal Medicine; Visit Provider Advanced Practice Midwife ==

== ENCOUNTER 2023-12-11 13:45 | Outpatient (REF) | payer OTHER, SELFPAY ==
--- NOTE | ~2023-12-11 | MM_ITS ---
EXAMINATION: MM DIAGNOSTIC DIGITAL BREAST TOMOSYNTHESIS, BILATERAL US BREAST LIMITED, BILATERAL MAMMOGRAPHY: CLINICAL INFORMATION: 48-year-old female, evaluate lobular mass right breast 12:00 axis middle one third seen on screening exam, and evaluate grouped focal asymmetries left breast upper outer quadrant seen on screening exam. Patient has family history of ovarian, breast, and other cancers. COMPARISON: Mammography: 11/08/2023, 11/12/2020, 12/14/2017, and dating back to 2013. TECHNIQUE: Digital breast tomosynthesis is performed in the following views: 3-D right spot compression CC x2, and ML x1, as well as left 3-D spot compression CC and ML views. Computer-aided diagnosis was used for this study. These were followed by targeted bilateral breast ultrasound. FINDINGS: There are scattered areas of fibroglandular density (ACR BI-RADS breast composition Category b). RIGHT BREAST: -A lobular mass in the 12:00 axis of the right breast, middle one third persists on spot compression views with circumscribed borders and 2 gentle lobulations. This will be evaluated by ultrasound. LEFT BREAST: -Left breast upper outer quadrant demonstrates numerous (at least 4) oval circumscribed isodense masses seen, the largest measuring approximately 1.3 cm, and the smallest measuring approximately 0.3 cm. An area of suspected architectural distortion dissipates in this region and is consistent with overlapping fibroglandular tissues. We will evaluate the upper outer left breast with ultrasound. ULTRASOUND: CLINICAL INFORMATION: As above COMPARISON: None relevant. TECHNIQUE: Targeted sonographic evaluation bilateral breasts was performed using a high frequency linear transducer. Attention was focused in the right breast to the 12:00 lobular mass. Attention to the left breast was focused to the upper outer quadrant, in the region of numerous oval masses/asymmetries. Selected archived documentation. FINDINGS: RIGHT BREAST: -The mass at 12:00, 4 cm from the nipple, represents a simple cyst with 2 lobulations measuring 1.9 x 1.8 x 1.3 cm. This is benign. No sonographically suspicious abnormalities. LEFT BREAST: -There are fibrocystic changes in the upper outer left breast. Numerous small simple cysts are present. -Within the left breast, 2:00 axis, 8 cm from the nipple approximately, there is a dominant simple cyst measuring 1.3 x 1.0 x 1.8 cm. There is an abutting satellite mildly complicated cyst measuring 5 x 3 x 8 mm. -Just inferior to the large cyst, there is a 3 x 3 x 2 mm oval mildly hypoechoic mass with mildly irregular margins, minimal posterior acoustic attenuation, no internal color Doppler signal, but demonstrates echogenic surrounding fatty changes. This is suspicious and attempt to aspirate/biopsy is recommended. MM/MM tomosynthesis added view BI IMPRESSION: 1. Benign cyst RIGHT breast 12:00 axis. No findings suspicious for malignancy right breast. 2. Numerous simple and mildly complex cysts LEFT breast upper outer quadrant, consistent with benign fibrocystic changes. 3. Somewhat suspicious mildly irregular 3 x 3 x 2 mm mass at the 2:00 position 8 cm from the nipple LEFT breast is present, and LEFT ultrasound-guided aspiration/biopsy is recommended to definitively characterize. If solid, clip placement with mammographic correlation recommended. Findings and recommendations were discussed with the patient in detail. OVERALL ASSESSMENT: Mammography: BI-RADS 4 - Suspicious finding Ultrasound: BI-RADS 4 - Suspicious finding RECOMMENDATION: Biopsy recommended This patient's information was entered into a reminder system with a target due date for their next mammogram.
== END 2023-12-11 13:46 | disposition home or self-care (01) ==
LOC: HO.MAMMO 13:45
PROVIDERS: PCP Internal Medicine; Visit Provider Advanced Practice Midwife
DX: N63.15 Unspecified lump in the right breast, overlapping quadrants (principal)
CPT/HCPCS: 76642; 77062; 77066

== ENCOUNTER → 2023-12-11 14:00 | Outpatient (BNV) | payer OTHER, SELFPAY | PROVIDERS: PCP Internal Medicine; Visit Provider Radiology Diagnostic Radiology | DX: N63.15 Unspecified lump in the right breast, overlapping quadrants (principal); R92.8 Other abnormal and inconclusive findings on diagnostic imaging of breast | CPT/HCPCS: 76642; 77062; 77066 ==

== ENCOUNTER 2024-01-01 08:16 | Outpatient (AMB) | payer OTHER, SELFPAY ==
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
[2024-01-01 08:17] VITALS: BP 140/76; PULSE 82; BMI 48.2
== END 2024-01-01 08:43 | disposition home or self-care (01) ==
PROVIDERS: PCP Internal Medicine; Visit Provider Surgery
DX: R92.8 Other abnormal and inconclusive findings on diagnostic imaging of breast (principal)
CPT/HCPCS: 99204

== ENCOUNTER 2024-01-01 09:06 | Outpatient (REF) | payer OTHER, SELFPAY ==
--- NOTE | ~2024-01-01 | MM_ITS ---
PROCEDURE: US GUIDED BREAST BIOPSY, LEFT CLINICAL INFORMATION: Small complicated cyst versus mass 3 x 3 x 2 mm left breast 2:00 axis, 8 cm from the nipple, recommended for biopsy. COMPARISON: Left breast ultrasound 12/11/2023 with diagnostic left mammogram. PROCEDURAL DETAILS: The details of the procedure, as well as the risks, benefits, and alternatives to the procedure were explained to the patient in detail and all of her questions were answered, after which written informed consent was obtained. Site and side were confirmed. Prior to the procedure, sonography revealed a small complex cyst versus mass measuring 3 x 3 x 2 mm at the 2:00 axis, 8 cm from the nipple. A time-out was performed, the lesion intended for biopsy was targeted, and the skin of the overlying left breast was then marked, prepped and draped in the usual sterile fashion. Using sonographic guidance, sterile technique, and 1% lidocaine without epinephrine for local anesthesia, multiple core biopsies were obtained through the targeted area with a 14G spring loaded [employer] core biopsy device. There was real-time confirmation of appropriate needle passage. Sampling was documented. At the completion of tissue sampling, a single butterfly shaped metallic clip was deposited at the biopsy site. There was no evidence of immediate complication. SPECIMEN: 3 well formed core samples were obtained. DIGITAL POST-PROCEDURE MAMMOGRAPHY: Breast density: The tissue contains scattered areas of fibroglandular density. BI-RADS version 5, category B. There are no new mammographic findings demonstrated. The postprocedure 1 view CC 3-D digital mammogram reveals satisfactory and accurate positioning of the biopsy clip. (Please note, the patient refused a two-view postprocedure mammogram). No hematoma present. The patient tolerated the procedure well and, after assuring adequate hemostasis, was discharged in good condition after reviewing postbiopsy breast care instructions. Final pathology results are pending. MM/MM tomosynthesis diagnostic LT IMPRESSION: 1. No immediate complication from ultrasound-guided percutaneous biopsy left breast. 2. Ultrasound was used to localize and guide marker clip placement. 3. Patient refused a two-view post procedural mammogram . The 1 view CC direct digital postprocedure mammogram reveals accurate positioning of the biopsy clip. 4. Final pathology results are pending. A separate report with final recommendations will be issued once these results are made available. Electronically signed by: Dilip Nolasco MD 01/01/2024 11:37 AM EDT
[2024-01-01] MEDS: Sodium Bicarbonate 8.4% 50 MEQ/50 ML VIAL SUBCUT (11:15)
[2024-01-01] MEDS: Lidocaine HCl 1 % 20 ML VIAL 9 ML SUBCUT (11:16)
== END 2024-01-01 09:07 | disposition home or self-care (01) ==
LOC: HO.MAMMO 09:06
PROVIDERS: Absent Provider Advanced Practice Midwife; PCP Internal Medicine; Visit Provider Surgery
DX: R92.8 Other abnormal and inconclusive findings on diagnostic imaging of breast (principal); N63.21 Unspecified lump in the left breast, upper outer quadrant
CPT/HCPCS: 19083; 77061; 77065; 88305; A4648; C1894

== ENCOUNTER → 2024-01-01 10:00 | Outpatient (BNV) | payer OTHER, SELFPAY | PROVIDERS: Absent Provider Advanced Practice Midwife; PCP Internal Medicine; Visit Provider Radiology Diagnostic Radiology | DX: R92.8 Other abnormal and inconclusive findings on diagnostic imaging of breast (principal) | CPT/HCPCS: 19083; 77065 ==

== ENCOUNTER 2024-01-03 08:51 | Outpatient (AMB) | payer OTHER, SELFPAY ==
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
[2024-01-03 09:05] VITALS: BP 147/76; PULSE 70; BMI 48.0
== END 2024-01-03 09:11 | disposition home or self-care (01) ==
PROVIDERS: PCP Internal Medicine; Visit Provider Surgery
DX: R92.8 Other abnormal and inconclusive findings on diagnostic imaging of breast (principal)
CPT/HCPCS: 99213

== ENCOUNTER → 2024-01-03 08:51 | Outpatient (BNVA) | payer OTHER, SELFPAY | PROVIDERS: PCP Internal Medicine; Visit Provider Surgery ==

== ENCOUNTER 2024-01-08 10:36 | Outpatient (AMB) | payer OTHER, SELFPAY ==
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
[2024-01-08 10:46] VITALS: PULSE 72; BMI 47.6
== END 2024-01-08 11:12 | disposition home or self-care (01) ==
PROVIDERS: PCP Internal Medicine; Visit Provider Surgery
DX: R92.8 Other abnormal and inconclusive findings on diagnostic imaging of breast (principal)
CPT/HCPCS: 99212

== ENCOUNTER → 2024-01-08 10:36 | Outpatient (BNVA) | payer OTHER, SELFPAY | PROVIDERS: PCP Internal Medicine; Visit Provider Surgery | DX: R92.8 Other abnormal and inconclusive findings on diagnostic imaging of breast (principal) ==

== ENCOUNTER 2024-01-31 07:34 | Outpatient (AMB) | payer OTHER, SELFPAY ==
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
[2024-01-31 07:46] VITALS: BP 122/86; BMI 47.6
== END 2024-01-31 08:54 | disposition home or self-care (01) ==
PROVIDERS: PCP Internal Medicine; Visit Provider Obstetrics & Gynecology
DX: Z30.432 Encounter for removal of intrauterine contraceptive device (principal); Z32.02 Encounter for pregnancy test, result negative
CPT/HCPCS: 58301

== ENCOUNTER → 2024-01-31 07:34 | Outpatient (BNVA) | payer OTHER, SELFPAY | PROVIDERS: PCP Internal Medicine; Visit Provider Obstetrics & Gynecology | DX: Z30.432 Encounter for removal of intrauterine contraceptive device (principal); Z32.02 Encounter for pregnancy test, result negative | CPT/HCPCS: 58301; 81025 ==

== ENCOUNTER 2024-03-19 15:49 | Outpatient (REF) | payer OTHER, SELFPAY ==
[2024-03-19 16:00] LABS: MANUAL DIFF FLAG NO
[2024-03-19 16:43] LABS: Basophils Absolute Auto 0.1 X10*3/uL (0.0-0.2); Basophils Percent Auto 0.8 % (0-2); Eosinophils Absolute Auto 0.5 X10*3/uL (0.0-0.4); Eosinophils Percent Auto 4.7 % (0-4); Hematocrit 36.4 % (37.0-47.0); Hemoglobin 11.7 g/dl (12.0-16.0); Imm Gran Abs Auto 0.04 X10*3/uL (0.00-0.03); Imm Gran Pct Auto 0.4 % (0.0-0.4); Lymphocytes Percent Auto 30.6 % (20-40); Mean Corpuscular HGB Conc 32.1 g/dl (31.0-35.0); Mean Corpuscular Hemoglobin 29.3 pg (27.0-33.0); Mean Corpuscular Volume 91.2 fL (80.0-98.0); Mean Platelet Volume 9.9 fL (9.4-12.3); Monocytes Absolute Auto 0.6 X10*3/uL (0.1-1.2); Monocytes Percent Auto 5.6 % (2-11); Neutrophils Absolute Auto 5.7 x10*3/uL (2.0-8.3); Neutrophils Percent Auto 57.9 % (45-73); Platelet Count 329 X10*3/uL (160-400); Red Blood Count 3.99 X10*6/uL (4.20-5.50); Red Cell Distribution Width 13.7 % (11.0-16.0); White Blood Count 9.9 X10*3/uL (4.8-10.8)
== END 2024-03-19 15:50 | disposition home or self-care (01) ==
LOC: HO.LAB 15:49
PROVIDERS: PCP Internal Medicine; Visit Provider Obstetrics & Gynecology
DX: N93.9 Abnormal uterine and vaginal bleeding, unspecified (principal)
CPT/HCPCS: 36415; 85025

== ENCOUNTER 2024-03-20 07:59 | Outpatient (AMB) | payer OTHER, SELFPAY ==
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
[2024-03-20 08:06] VITALS: BMI 47.6
== END 2024-03-20 08:37 | disposition home or self-care (01) ==
PROVIDERS: PCP Internal Medicine; Visit Provider Obstetrics & Gynecology
DX: N93.9 Abnormal uterine and vaginal bleeding, unspecified (principal); Z32.02 Encounter for pregnancy test, result negative
CPT/HCPCS: 58100; 99213

== ENCOUNTER 2024-03-20 07:59 | Outpatient (REF) | payer OTHER, SELFPAY ==
[2024-03-20 09:49] LABS: HCG Quantitative < 2 mIU/mL; TSH reflex Free T4 3.91 uIU/mL (0.32-4.0)
[2024-03-21 12:44] LABS: CT PCR NOT DETECTED (Not Detect.); NG PCR NOT DETECTED (Not Detect.)
[2024-03-22 04:09] LABS: Follicle Stimulating Hormone 30.8 mIU/mL; Prolactin 11.4 ng/mL
== END 2024-03-20 08:00 | disposition home or self-care (01) ==
LOC: HO.LNP 07:59
PROVIDERS: PCP Internal Medicine; Visit Provider Obstetrics & Gynecology
DX: N93.9 Abnormal uterine and vaginal bleeding, unspecified (principal); Z32.02 Encounter for pregnancy test, result negative
CPT/HCPCS: 58100; 81025; 83001; 83002; 84146; 84443; 84702; 87491; 87591; 88305

== ENCOUNTER 2024-03-20 08:41 | Outpatient (REF) | payer OTHER, SELFPAY | END 2024-03-20 08:42 | disposition home or self-care (01) | LOC: HO.LAB 08:41 | PROVIDERS: PCP Internal Medicine; Visit Provider Obstetrics & Gynecology | DX: Z13.89 Encounter for screening for other disorder (principal) ==

== ENCOUNTER 2024-04-02 16:20 | Outpatient (REF) | payer OTHER, SELFPAY | END 2024-04-02 16:21 | disposition home or self-care (01) | LOC: HO.US 16:20 | PROVIDERS: PCP Internal Medicine; Visit Provider Obstetrics & Gynecology | DX: N93.9 Abnormal uterine and vaginal bleeding, unspecified (principal) | CPT/HCPCS: 76830; 76856 ==

== ENCOUNTER 2024-05-12 13:22 | Outpatient (AMB) | payer OTHER, SELFPAY ==
[2024-05-12 13:23] VITALS: BMI 47.5
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
== END 2024-05-12 13:41 | disposition home or self-care (01) ==
PROVIDERS: PCP Internal Medicine; Visit Provider Obstetrics & Gynecology
DX: N93.9 Abnormal uterine and vaginal bleeding, unspecified (principal); N83.209 Unspecified ovarian cyst, unspecified side
CPT/HCPCS: 99213

== ENCOUNTER → 2024-05-12 13:22 | Outpatient (BNVA) | payer OTHER, SELFPAY | PROVIDERS: PCP Internal Medicine; Visit Provider Obstetrics & Gynecology ==

== ENCOUNTER 2024-08-14 08:09 | Outpatient (REF) | payer OTHER, SELFPAY ==
[2024-08-14 10:09] LABS: MANUAL DIFF FLAG NO
[2024-08-14 10:20] LABS: Basophils Absolute Auto 0.1 X10*3/uL (0.0-0.2); Basophils Percent Auto 0.9 % (0-2); Eosinophils Absolute Auto 0.5 X10*3/uL (0.0-0.4); Hematocrit 36.9 % (37.0-47.0); Hemoglobin 11.8 g/dl (12.0-16.0); Imm Gran Abs Auto 0.04 X10*3/uL (0.00-0.03); Imm Gran Pct Auto 0.5 % (0.0-0.4); Lymphocytes Absolute Auto 2.7 X10*3/uL (1.2-4.9); Lymphocytes Percent Auto 35.6 % (20-40); Mean Corpuscular Hemoglobin 28.2 pg (27.0-33.0); Mean Corpuscular Volume 88.1 fL (80.0-98.0); Mean Platelet Volume 9.9 fL (9.4-12.3); Monocytes Absolute Auto 0.5 X10*3/uL (0.1-1.2); Monocytes Percent Auto 6.4 % (2-11); Neutrophils Absolute Auto 3.8 x10*3/uL (2.0-8.3); Neutrophils Percent Auto 50.6 % (45-73); Platelet Count 308 X10*3/uL (160-400); Red Blood Count 4.19 X10*6/uL (4.20-5.50); Red Cell Distribution Width 14.6 % (11.0-16.0); White Blood Count 7.5 X10*3/uL (4.8-10.8)
[2024-08-14 12:07] LABS: Alanine Aminotransferase 98 U/L (0-31); Anion Gap 10 (12-20); Aspartate Amino Transferase 59 U/L (5-31); Blood Urea Nitrogen 11 mg/dL (9-16); Carbon Dioxide 26 mmol/L (22-29); Chloride 105 mmol/L (96-108); Cholesterol 173 mg/dL (<200); Estimated Glomerular Filt Rate > 60; Glucose Fasting 112 mg/dL (60-99); HDL Cholesterol 49 mg/dL (>40); Iron 46 mcg/dL (30-160); LDL Cholesterol Calculated 108 mg/dL (<100); Percent Iron Saturation 17 % (15-50); Potassium 4.3 mmol/L (3.3-5.1); Sodium 137 mmol/L (135-145); TSH reflex Free T4 3.66 uIU/mL (0.32-4.0); Total Iron Binding Capacity 264 mcg/dL (228-428); Triglycerides 82 mg/dL (<150); Unsaturated Iron Binding 218 ug/dL; Vitamin D 25-OH Total 18.8 ng/mL (>30)
== END 2024-08-14 08:10 | disposition home or self-care (01) ==
LOC: HO.HMGCLDS 08:09
PROVIDERS: PCP Internal Medicine; Visit Provider Internal Medicine
DX: Z00.01 Encounter for general adult medical examination with abnormal findings (principal); E03.9 Hypothyroidism, unspecified; K21.9 Gastro-esophageal reflux disease without esophagitis; Z86.0101 Personal history of adenomatous and serrated colon polyps; N93.9 Abnormal uterine and vaginal bleeding, unspecified; D64.9 Anemia, unspecified; Z78.0 Asymptomatic menopausal state; Z13.220 Encounter for screening for lipoid disorders; Z13.1 Encounter for screening for diabetes mellitus
CPT/HCPCS: 36415; 80048; 80061; 82306; 83540; 84443; 84450; 84460; 85025; 96127

== ENCOUNTER 2024-08-14 08:09 | Outpatient (AMB) | payer OTHER, SELFPAY ==
[2024-08-14 08:14] VITALS: BP 122/86; PULSE 77; RESP 15; TEMP 36.7; O2SAT 100; BMI 48.2
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
== END 2024-08-14 09:13 | disposition home or self-care (01) ==
LOC: HO.HMCC 08:09
PROVIDERS: PCP Internal Medicine; Visit Provider Internal Medicine
DX: Z00.01 Encounter for general adult medical examination with abnormal findings (principal); D12.6 Benign neoplasm of colon, unspecified; E03.9 Hypothyroidism, unspecified; K21.9 Gastro-esophageal reflux disease without esophagitis

== ENCOUNTER 2024-10-14 08:07 | Outpatient (REF) | payer OTHER, SELFPAY | END 2024-10-14 08:08 | disposition home or self-care (01) | LOC: HO.MAMMO 08:07 | PROVIDERS: PCP Internal Medicine; Visit Provider Internal Medicine | DX: Z12.31 Encounter for screening mammogram for malignant neoplasm of breast (principal) | CPT/HCPCS: 77063; 77067 ==

== ENCOUNTER → 2024-10-14 08:15 | Outpatient (BNV) | payer OTHER, SELFPAY | PROVIDERS: PCP Internal Medicine; Visit Provider Internal Medicine | DX: Z12.31 Encounter for screening mammogram for malignant neoplasm of breast (principal) | CPT/HCPCS: 77063; 77067 ==

== ENCOUNTER 2024-12-16 09:13 | Outpatient (REF) | payer OTHER, SELFPAY ==
[2024-12-16 21:52] LABS: Bacterial Vaginosis PCR POSITIVE (Negative); Candida Group PCR NOT DETECTED (Not Detect); Candida glab krusei PCR NOT DETECTED (Not Detect); Trichomonas vaginalis PCR NOT DETECTED (Not Detect)
== END 2024-12-16 09:14 | disposition home or self-care (01) ==
LOC: HO.LAB 09:13
PROVIDERS: PCP Internal Medicine; Visit Provider Advanced Practice Midwife
DX: N92.1 Excessive and frequent menstruation with irregular cycle (principal); N90.89 Other specified noninflammatory disorders of vulva and perineum; N89.8 Other specified noninflammatory disorders of vagina
CPT/HCPCS: 81515

== ENCOUNTER 2024-12-16 09:13 | Outpatient (AMB) | payer OTHER, SELFPAY ==
[2024-12-16 09:20] VITALS: BP 118/84; BMI 48.2
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
== END 2024-12-16 12:32 | disposition home or self-care (01) ==
PROVIDERS: PCP Internal Medicine; Visit Provider Advanced Practice Midwife
DX: N92.1 Excessive and frequent menstruation with irregular cycle (principal); N90.89 Other specified noninflammatory disorders of vulva and perineum
CPT/HCPCS: 99213

== ENCOUNTER 2025-01-16 08:52 | Outpatient (AMB) | payer OTHER, SELFPAY ==
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
--- OUTSIDE RECORDS SUMMARY | 2025-01-16 09:35 | XMS_ITS | Clinical Summary ---
Author Organization [facility] Address [address] [place] [address] [place] [phone] Phone Care Team Providers Care Senior Product Development Scientist Name Role Phone Risa Pitt MD Primary Care Provider Allergies Active Allergy Reactions Criticality Noted Date Comments Iodine 12/12/2024 Penicillins 12/12/2024 Medications levothyroxine (SYNTHROID) 50 MCG tablet 1 tablet on an empty stomach in the morning, except 1.5 tabs on Sunday Orally Once a day HELENE 6 Active omeprazole (PRILOSEC) 20 MG capsule Take 1 capsule by mouth daily. Active LORazepam (ATIVAN) 1 MG tablet Take 1 tablet by mouth daily as needed. 2 Active gentamicin (GARAMYCIN) 0.3 % ophthalmic solution 1 drop into affected eye Ophthalmic every 4 hrs 7 Active EPINEPHrine (ADRENACLICK) 0.3 mg/0.3 mL auto-injector as directed Injection as directed 7 Active tobramycin (TOBREX) 0.3 % ophthalmic solution 1 drop into affected eye Ophthalmic every 4 hrs while awake 7 Active mefenamic acid (PONSTEL) 250 mg Cap 2 caps initially, then 1 capsule with food or milk as needed Orally every 6 hrs 7 Active Encounters Date Type Department Care Team Description 12/12/2024 7:45 PM EDT - 12/12/2024 10:18 PM EDT Emergency [facility] [address] [place] [address] Shelli Carter MD Discharge Disposition: Home or Self Care from Last 3 Months Social History Tobacco Use Types Packs/Day Years Used Date Smoking Tobacco: Never Assessed Education Answer Date Recorded Are you interested in more education? Not on dirk e 08/25/2022 Are you concerned about learning? Not on file 08/25/2022 No 08/25/2022 No 08/25/2022 Food Answer Date Recorded Within the past 6 months we worried whether our food would run out before we got money to buy more. Never True 12/12/2024 Within the past 6 months the food we bought just didn't last and we didn't have enough money to get more. Never True Residential Stability Answer Date Recor ded What is your housing situation today? I have manas sing 12/12/2024 How many times have you move d in the past 12 months? Zero (I did not move) 12/12/2024 Paying for Meds Answer Date Recorded Do you have trouble paying for medicines? No 12/12/2024 Paying Utility Bills Answer Date Record ed Do you have trouble paying your heating or elect ricity bill? No 12/12/2024 Transportation Answer Date Recorded Has the lack of transportati on kept you from medical appointments or from getting medications? No 12/12/2024 Digital Access Answer Date Recorded No 12/12/2024 Yes 12/12/2024 Do you have reliable internet access at home? Ye s 12/12/2024 Do you have a device (e.g., phone, tablet, computer) with a working camera? Yes 12/12/2024 Intimate Partner Violence Answer Date R ecorded Are you denied basic needs s uch as food, clothing, or medical care? No 12/12/2024 In the past 12 months have y ou been in a relationship with a person who hurts, threatens, or tries to control you? No 12/12/2024 Are you denied basic needs s uch as food, clothing, or medical care? No 12/12/2024 In the past 12 months have y ou been in a relationship with a person who hurts, threatens, or tries to control you? No 12/12/2024 Comments Unknown Sex and Gender Information Value Date Recorded Sex Assigned at Female 12/12/2024 5:33 PM EDT Legal Sex Female 9:31 PM EDT Gender Identity Female 12/12/2024 5:33 PM EDT Sexual Orientation Straight 12/12/2024 5: 33 PM EDT Last Filed Vital Signs Vital Sign Reading Time Taken Comments Blood Pressure 133/88 12/12/2024 10:16 PM EDT Pulse 68 12/12/2024 10:16 PM EDT Temperature 36.4 C (97.5 F) 12/12/2024 7:20 PM EDT Respiratory Rate 16 12/12/2024 10:1 6 PM EDT Oxygen Saturation 99% 12/12/2024 7:20 PM EDT Inhaled Oxygen Concentration - - Weight 123.2 kg (271 lb 9.7 oz) 025 10:16 PM EDT Height 158.8 cm (5' 2.52 ) 12/12/2024 1 0:16 PM EDT Body Mass Index 48.85 12/12/2024 10:16 PM EDT Plan of Treatment Health Maintenance Due Date Last Done Comments TSH LEVEL 1973 DEPRESSION SCREENING 1985 SMOKING Hx and SMOKELESS TOBACCO SCREENING 1986 HEPATITIS C SCREENING 1991 HIV ONE-TIME SCREENING (18-6 5 YEARS) 1991 SCREENING FOR DIABETES 2008 MAMMOGRAM 03/02/2018 03/02/2016 COLOGUARD 2018 FIT TEST 2018 FOBT 2018 SIGMOIDOSCOPY 2018 VIRTUAL COLONOSCOPY 2018 PAP SMEAR 05/25/2019 05/25/2016 LIPID PANEL 03/30/2020 03/30/2015 PNEUMOCOCCAL VACCINES (50+ years) (1 of 1 - PCV) 2023 ZOSTER VACCINES (1 of 2) 2023 COLONOSCOPY 11/15/2023 11/14/2013 COLORECTAL CANCER SCREENING 11/15/2023 Adult Td,Tdap Booster 08/05/2024 08/05/2014 , 09/19/2011, 08/02/2011 INFLUENZA VACCINE (#1) 2024 9, 01/14/2016, 03/30/2015 COVID-19 VACCINE (3 - 2024-2 6 season) 2024 06/25/2020, 06/04/2020 HEPATITIS A VACCINES Aged Out No long er eligible based on patient's age to complete this topic HIB VACCINES Aged Out No longer eligi ble based on patient's age to complete this topic MENINGOCOCCAL VACCINES (ACWY) Aged Out No longer eligible based on patient's age to complete this topic MENINGOCOCCAL VACCINES (B) Aged Out N o longer eligible based on patient's age to complete this topic Medical Devices Not on file Procedures Procedure Name Priority Date/Time Associated Diagnosis Comments URINE SEDIMENT STAT 12/12/2024 5:58 PM EDT URINALYSIS W/REFLEX URINE CULTURE STAT 12/12/2024 5:58 PM EDT HCG, SERUM QUALITATIVE STAT 12/12/2024 4:34 PM EDT CBC AND DIFFERENTIAL STAT 12/12/2024 4:34 PM EDT OUTSIDE LDL Routine 03/30/2015 from Last 3 Months or Most Recently Relevant to Health Maintenance Results * (ABNORMAL) Urinalysis w/reflex Urine Culture (12/12/2024 5:58 PM EDT) COLOR Yellow Yellow [facility] CLARITY Clear [facility] GLUCOSE Negative Negative [facility] BILI Negative Negative [facility] KETONES Negative Negative [facility] SPECIFIC GRAVITY 1.010 1.005 - 1.030 [facility] BLOOD 2+(A) Negative [facility] PH 6.0 5.0 - 8.0 [facility] Protein-UA Negative Negative [facility] NITRITE Negative Negative [facility] Leukocyte esterase, ur Negative Negative [facility] Urine (Urine) 12/12/2024 5:5 8 PM EDT 12/12/2024 7:15 PM EDT us Luís Lakhani MD URINE ORDERABLES Final Result [address] [address] * (ABNORMAL) Urine sediment (12/12/2024 5:58 PM EDT) WBC 0-4(A) NONE SEEN /hpf [facility] RBC 11-20(A) NONE SEEN /hpf [facility] URINE EPITHELIAL 0-4(A) NONE SEEN [facility] MUCUS Trace(A) NONE SEEN /hpf [facility] BACTERIA Trace(A) NONE SEEN /hpf [facility] 12/12/2024 5:58 PM EDT 12/12/2024 7:15 PM EDT Luís Lakhani MD URINE ORDERABLES Final Result Performing Organization Address [facility]/ZIP Co de Phone Number [address] [address] * HCG, serum qualitative (12/12/2024 4:34 PM EDT) Pathologist [facility] HCG, QUALITATIVE Negative Negative IU/L [facility] Blood 12/12/2024 4:34 PM EDT 12/12/2024 4:42 PM EDT Luís Lakhani MD LAB BLOOD ORDERABLES Final Resul t Performing Organization Address [facility] Co de Phone Number [address] [address] * (ABNORMAL) CBC and differential (12/12/2024 4:34 PM EDT) Pathologist [facility] WBC 9.22 4.00 - 11.00 K/uL [facility] RBC 4.00 4.00 - 5.20 M/uL [facility] HGB 11.7(L) 12.0 - 16.0 g/dL [facility] HCT 36.2 36.0 - 46.0 % [facility] PLT 335 150 - 450 K/uL [facility] MCV 90.5 80.0 - 100.0 fL [facility] MCH 29.3 27.0 - 31.0 pg [facility] MCHC 32.3 32.0 - 36.0 g/dL [facility] RDW 14.2 11.5 - 14.5 % [facility] MPV 9.2 8.4 - 12.0 fL [facility] NRBC 0.00 0.00 /100 WBCs [facility] ABSOLUTE NRBC 0.00 0.00 K/uL [facility] DIFF METHOD Auto [facility] NEUTS 52.5 48.0 - 76.0 % [facility] LYMPHS 34.6 18.0 - 41.0 % [facility] MONOS 6.4 4.0 - 11.0 % [facility] EOS 5.3(H) 0.0 - 5.0 % [facility] BASOS 0.8 0.0 - 1.5 % [facility] Granulocytes, immature (%) 0.4 0.0 - 0.9 % [facility] ABSOLUTE NEUTS 4.84 1.92 - 7.60 K/uL [facility] ABSOLUTE LYMPHS 3.19 0.72 - 4.10 K/uL [facility] ABSOLUTE MONOS 0.59 0.16 - 1.10 K/uL [facility] ABSOLUTE EOS 0.49 0.00 - 0.50 K/uL [facility] ABSOLUTE BASOS 0.07 0.00 - 0.15 K/uL [facility] Granulocytes, immature 0.04 0.00 - 0.09 K/uL [facility] Blood 12/12/2024 4:34 PM EDT 12/12/2024 4:42 PM EDT Luís Lakhani MD LAB BLOOD ORDERABLES Final Resul t [address] [address] * Outside LDL (03/30/2015) LDL - External 104 50 - 250 mg/ml John Provider LAB BLOOD ORDERABLES Jazmyne l Result from Last 3 Months or Most Recently Relevant to Health Maintenance Insurance [address] [place], [place] [address]O POS EPO O POS E[place] [address] [place], [place] [address] [facility] O POS EPO O [place] [address] [place] [address] Care Teams Senior Product Development Scientist Relationship Specialty Start Date End Date Risa Pitt MD [facility] [place] [address] PCP - General Internal Medicine 12/12/24 Additional Source Comments The information contained in this document represents components of the legal health record. It is not the complete legal health record.[facility]
== END 2025-01-16 10:02 | disposition home or self-care (01) ==
LOC: HO.HMCC 08:52
PROVIDERS: PCP Internal Medicine; Visit Provider Internal Medicine
DX: F41.9 Anxiety disorder, unspecified (principal); F32.A Depression, unspecified

== ENCOUNTER → 2025-01-16 08:52 | Outpatient (BNVA) | payer OTHER, SELFPAY | PROVIDERS: PCP Internal Medicine; Visit Provider Internal Medicine | DX: F41.1 Generalized anxiety disorder (principal); F32.A Depression, unspecified | CPT/HCPCS: 96127 ==

== ENCOUNTER 2025-01-26 15:34 | Outpatient (REF) | payer OTHER, SELFPAY ==
--- NOTE | ~2025-01-26 | US_ITS ---
EXAMINATION: US PELVIS CLINICAL INFORMATION: N83.209 - Unspecified ovarian cyst, unspecified side COMPARISON: None available. TECHNIQUE: Ultrasound of the pelvis is performed using both transabdominal and transvaginal transducers along with Doppler. Transvaginal imaging is performed due to inadequate visualization transabdominally. FINDINGS: Uterus: The uterus is anteverted and measures 8.6 x 4.7 x 6.0 cm. The double wall endometrial thickness is 3 mm. The uterus is smooth in contour and has normal myometrial echogenicity. No visible fibroid. Adnexa: Both ovaries are visualized. There is normal color flow to the adnexa. There is no ovarian torsion. There is no pelvic ascites or fluid collection. Right ovary measures 1.8 x 1.1 x 2.2 cm. Left ovary measures 2.5 x 2.3 x 2.9 cm. There is a small cyst measuring 14 x 8 x 16 mm previously 19 x 20 x 24 mm. US/US pelvic and transvaginal IMPRESSION: Unremarkable pelvic ultrasound. Small left ovarian cyst requiring no further follow-up. Electronically signed by: Aravind Barksdale MD 01/26/2025 04:46 PM EDT
--- OUTSIDE RECORDS SUMMARY | 2025-01-26 17:37 | XMS_ITS | Clinical Summary ---
Author Organization [facility] Address [address] [place] [address] [place] [phone] Phone Care Team Providers Care Carbonation Equipment Operator Name Role Phone Risa Pitt MD Primary [...] 10:18 PM EDT Emergency [facility] [address] [place] [address] Shelli Carter MD Discharge Disposition: Home or [...] (12/12/2024 5:58 PM EDT) COLOR Yellow Yellow [facility] CLARITY Clear [facility] GLUCOSE Negative Negative [facility] BILI Negative Negative [facility] KETONES Negative Negative [facility] SPECIFIC GRAVITY 1.010 1.005 - 1.030 [facility] BLOOD 2+(A) Negative [facility] PH 6.0 5.0 - 8.0 [facility] Protein-UA Negative Negative [facility] NITRITE Negative Negative [facility] Leukocyte esterase, ur Negative Negative [facility] Urine (Urine) 12/12/2024 5:5 8 PM EDT 12/12/2024 7:15 PM EDT us Luís Lakhani MD URINE ORDERABLES Final Result [address] [address] * (ABNORMAL) Urine sediment (12/12/2024 5:58 PM EDT) WBC 0-4(A) NONE SEEN /hpf [facility] RBC 11-20(A) NONE SEEN /hpf [facility] URINE EPITHELIAL 0-4(A) NONE SEEN [facility] MUCUS Trace(A) NONE SEEN /hpf [facility] BACTERIA Trace(A) NONE SEEN /hpf [facility] 12/12/2024 5:58 PM EDT 12/12/2024 7:15 PM EDT Luís Lakhani MD URINE ORDERABLES Final Result Performing Organization Address [facility]/ZIP Co de Phone Number [address] [address] * HCG, serum qualitative (12/12/2024 4:34 PM EDT) Pathologist [facility] HCG, QUALITATIVE Negative Negative IU/L [facility] Blood 12/12/2024 4:34 PM EDT 12/12/2024 4:42 PM EDT Luís Lakhani MD LAB BLOOD ORDERABLES Final Resul t Performing Organization Address [facility] Co de Phone Number [address] [address] * (ABNORMAL) CBC and differential (12/12/2024 4:34 PM EDT) Pathologist [facility] WBC 9.22 4.00 - 11.00 K/uL [facility] RBC 4.00 4.00 - 5.20 M/uL [facility] HGB 11.7(L) 12.0 - 16.0 g/dL [facility] HCT 36.2 36.0 - 46.0 % [facility] PLT 335 150 - 450 K/uL [facility] MCV 90.5 80.0 - 100.0 fL [facility] MCH 29.3 27.0 - 31.0 pg [facility] MCHC 32.3 32.0 - 36.0 g/dL [facility] RDW 14.2 11.5 - 14.5 % [facility] MPV 9.2 8.4 - 12.0 fL [facility] NRBC 0.00 0.00 /100 WBCs [facility] ABSOLUTE NRBC 0.00 0.00 K/uL [facility] DIFF METHOD Auto [facility] NEUTS 52.5 48.0 - 76.0 % [facility] LYMPHS 34.6 18.0 - 41.0 % [facility] MONOS 6.4 4.0 - 11.0 % [facility] EOS 5.3(H) 0.0 - 5.0 % [facility] BASOS 0.8 0.0 - 1.5 % [facility] Granulocytes, immature (%) 0.4 0.0 - 0.9 % [facility] ABSOLUTE NEUTS 4.84 1.92 - 7.60 K/uL [facility] ABSOLUTE LYMPHS 3.19 0.72 - 4.10 K/uL [facility] ABSOLUTE MONOS 0.59 0.16 - 1.10 K/uL [facility] ABSOLUTE EOS 0.49 0.00 - 0.50 K/uL [facility] ABSOLUTE BASOS 0.07 0.00 - 0.15 K/uL [facility] Granulocytes, immature 0.04 0.00 - 0.09 K/uL [facility] Blood 12/12/2024 4:34 PM EDT 12/12/2024 4:42 PM EDT Luís Lakhani MD LAB BLOOD ORDERABLES Final Resul t [address] [address] * Outside LDL (03/30/2015) LDL - External 104 50 - 250 mg/ml John Provider LAB BLOOD ORDERABLES Jazmyne l Result from Last 3 Months or Most Recently Relevant to Health Maintenance Insurance [address] [place], [place] [address]O POS EPO O POS [place] [address] [place] [address]O [facility] O POS EPO [place] [address] [place] [address] Care Teams Carbonation Equipment Operator Relationship Specialty Start Date End Date Risa Pitt MD [facility] [place] [address] PCP - General Internal Medicine 12/12/24 Additional Source Comments The information contained in this document represents components of the legal health record. It is not the complete legal health record.[facility]
== END 2025-01-26 15:35 | disposition home or self-care (01) ==
LOC: HO.HMGCX 15:34
PROVIDERS: PCP Internal Medicine; Visit Provider Obstetrics & Gynecology
DX: N83.209 Unspecified ovarian cyst, unspecified side (principal)
CPT/HCPCS: 76830; 76856

== ENCOUNTER → 2025-01-26 15:34 | Outpatient (BNV) | payer OTHER, SELFPAY | PROVIDERS: PCP Internal Medicine; Visit Provider Radiology Diagnostic Radiology | DX: N83.202 Unspecified ovarian cyst, left side (principal) | CPT/HCPCS: 76830; 76856 ==

== ENCOUNTER 2025-02-17 10:15 | Outpatient (AMB) | payer OTHER, SELFPAY ==
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
--- OUTSIDE RECORDS SUMMARY | 2025-02-17 12:06 | XMS_ITS | Clinical Summary ---
Author Organization [facility] Address [address] [place] [address] [place] [phone] Phone Care Team Providers Care Assignment Officer Name Role Phone Risa Pitt MD Primary [...] 10:18 PM EDT Emergency [facility] [address] [place] [address] Shelli Carter MD Discharge Disposition: Home or [...] years) (1 of 1 - PCV) 2023 RSV VACCINE (1 - Risk 50-74 years 1-dose series) 2023 ZOSTER VACCINES (1 of 2) 2023 COLONOSCOPY 11/15/2023 11/14/2013 COLORECTAL CANCER SCREENING 11/15/2023 Adult Td,Tdap Booster 08/05/2024 08/05/2014 , 09/19/2011, 08/02/2011 INFLUENZA VACCINE (#1) 2024 9, 01/14/2016, 03/30/2015 COVID-19 VACCINE (2024-2 6 season) 2024 06/25/2020, 06/04/2020 HEPATITIS A [...] (12/12/2024 5:58 PM EDT) COLOR Yellow Yellow [facility] CLARITY Clear [facility] GLUCOSE Negative Negative [facility] BILI Negative Negative [facility] KETONES Negative Negative [facility] SPECIFIC GRAVITY 1.010 1.005 - 1.030 [facility] BLOOD 2+(A) Negative [facility] PH 6.0 5.0 - 8.0 [facility] Protein-UA Negative Negative [facility] NITRITE Negative Negative [facility] Leukocyte esterase, ur Negative Negative [facility] Urine (Urine) 12/12/2024 5:5 8 PM EDT 12/12/2024 7:15 PM EDT us Luís Lakhani MD URINE ORDERABLES Final Result [address] [address] * (ABNORMAL) Urine sediment (12/12/2024 5:58 PM EDT) WBC 0-4(A) NONE SEEN /hpf [facility] RBC 11-20(A) NONE SEEN /hpf [facility] URINE EPITHELIAL 0-4(A) NONE SEEN [facility] MUCUS Trace(A) NONE SEEN /hpf [facility] BACTERIA Trace(A) NONE SEEN /hpf [facility] 12/12/2024 5:58 PM EDT 12/12/2024 7:15 PM EDT us Luís Lakhani MD URINE ORDERABLES Final Result Performing Organization Address City/[facility]/ZIP Co de Phone Number [address] [address] * HCG, serum qualitative (12/12/2024 4:34 PM EDT) Pathologist [facility] [place] HCG, QUALITATIVE Negative Negative IU/L [facility] Blood 12/12/2024 4:34 PM EDT 12/12/2024 4:42 PM EDT us Luís Lakhani MD LAB BLOOD ORDERABLES Final Resul t Performing Organization Address City/[facility]/ZIP Co de Phone Number [address] [address] * (ABNORMAL) CBC and differential (12/12/2024 4:34 PM EDT) Pathologist [facility] [place] WBC 9.22 4.00 - 11.00 K/uL [facility] RBC 4.00 4.00 - 5.20 M/uL [facility] HGB 11.7(L) 12.0 - 16.0 g/dL [facility] HCT 36.2 36.0 - 46.0 % [facility] PLT 335 150 - 450 K/uL [facility] MCV 90.5 80.0 - 100.0 fL [facility] MCH 29.3 27.0 - 31.0 pg [facility] MCHC 32.3 32.0 - 36.0 g/dL [facility] RDW 14.2 11.5 - 14.5 % [facility] MPV 9.2 8.4 - 12.0 fL [facility] NRBC 0.00 0.00 /100 WBCs [facility] ABSOLUTE NRBC 0.00 0.00 K/uL [facility] DIFF METHOD Auto [facility] NEUTS 52.5 48.0 - 76.0 % [facility] LYMPHS 34.6 18.0 - 41.0 % [facility] MONOS 6.4 4.0 - 11.0 % [facility] EOS 5.3(H) 0.0 - 5.0 % [facility] BASOS 0.8 0.0 - 1.5 % [facility] Granulocytes, immature (%) 0.4 0.0 - 0.9 % [facility] ABSOLUTE NEUTS 4.84 1.92 - 7.60 K/uL [facility] ABSOLUTE LYMPHS 3.19 0.72 - 4.10 K/uL [facility] ABSOLUTE MONOS 0.59 0.16 - 1.10 K/uL [facility] ABSOLUTE EOS 0.49 0.00 - 0.50 K/uL [facility] ABSOLUTE BASOS 0.07 0.00 - 0.15 K/uL [facility] Granulocytes, immature 0.04 0.00 - 0.09 K/uL [facility] Blood 12/12/2024 4:34 PM EDT 12/12/2024 4:42 PM EDT us Luís Lakhani MD LAB BLOOD ORDERABLES Final Resul t [facility] [address], [place] [id number] * Outside LDL (03/30/2015) LDL - External 104 50 - 250 mg/ml us Historical Provider LAB BLOOD ORDERABLES Jazmyne l Result from Last 3 Months or Most Recently Relevant to Health Maintenance Insurance O POS EPO O POS EPO O [place] [address] [place], [place] [address]O POS EPO O POS EPO O POS [place] [id number] [place] [id number] [place] [id number] Care Teams Assignment Officer Relationship Specialty Start Date End Date Risa Pitt MD [facility] [place] [address] PCP - General Internal Medicine 12/12/24 Additional Source Comments The information contained in this document represents components of the legal health record. It is not the complete legal health record.[facility]
== END 2025-02-17 10:51 | disposition home or self-care (01) ==
LOC: HO.HWS 10:16
PROVIDERS: PCP Internal Medicine; Visit Provider Advanced Practice Midwife
DX: Z71.2 Person consulting for explanation of examination or test findings (principal); N83.202 Unspecified ovarian cyst, left side
CPT/HCPCS: 99213

== ENCOUNTER 2025-03-04 07:54 | Outpatient (AMB) | payer OTHER, SELFPAY ==
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
[2025-03-04 07:58] VITALS: BP 118/76; BMI 49.2
--- OUTSIDE RECORDS SUMMARY | 2025-03-04 07:59 | XMS_ITS | Clinical Summary ---
Author Organization [facility] Address [address] [place] [address] [place] [id number] Phone Care Team Providers Care Oracle R12 Developer Name Role Phone Risa Pitt MD Primary [...] 10:18 PM EDT Emergency [facility] [address] [place] [address] Shelli Carter MD Discharge Disposition: Home or [...] SEDIMENT STAT 12/12/2024 5:58 PM EDT URINALYSIS WITH REFLEX TO URINE CULTURE STAT 12/12/2024 5:58 PM EDT HCG, SERUM QUALITATIVE STAT 12/12/2024 4:34 PM EDT CBC AND DIFFERENTIAL STAT 12/12/2024 4:34 PM EDT OUTSIDE LDL Routine 03/30/2015 from Last 3 Months or Most Recently Relevant to Health Maintenance Results * (ABNORMAL) Urinalysis w/reflex Urine Culture (12/12/2024 5:58 PM EDT) COLOR Yellow Yellow [facility] CLARITY Clear [facility] GLUCOSE Negative Negative [facility] BILI Negative Negative [facility] KETONES Negative Negative [facility] SPECIFIC GRAVITY 1.010 1.005 - 1.030 [facility] BLOOD 2+(A) Negative [facility] PH 6.0 5.0 - 8.0 [facility] Protein-UA Negative Negative [facility] NITRITE Negative Negative [facility] Leukocyte esterase, ur Negative Negative [facility] Urine (Urine) 12/12/2024 5:5 8 PM EDT 12/12/2024 7:15 PM EDT us Luís Lakhani MD LAB URINE ORDERABLES Final Resul t [address] [address] * (ABNORMAL) Urine sediment (12/12/2024 5:58 PM EDT) WBC 0-4(A) NONE SEEN /hpf [facility] RBC 11-20(A) NONE SEEN /hpf [facility] URINE EPITHELIAL 0-4(A) NONE SEEN [facility] MUCUS Trace(A) NONE SEEN /hpf [facility] BACTERIA Trace(A) NONE SEEN /hpf [facility] 12/12/2024 5:58 PM EDT 12/12/2024 7:15 PM EDT Luís Lakhani MD LAB URINE ORDERABLES Final Resul t Performing Organization Address [facility]/ZIP Co de Phone Number [address] [address] * HCG, serum qualitative (12/12/2024 4:34 PM EDT) HCG, QUALITATIVE Negative Negative IU/L [facility] Blood 12/12/2024 4:34 PM EDT 12/12/2024 4:42 PM EDT us Luís Lakhani MD LAB BLOOD BKR ORDERABLES Final R esult Performing Organization Address [facility]/ZIP Co de Phone Number [address] [address] * (ABNORMAL) CBC and differential (12/12/2024 4:34 PM EDT) WBC 9.22 4.00 - 11.00 K/uL [facility] RBC 4.00 4.00 - 5.20 M/uL [facility] HGB 11.7(L) 12.0 - 16.0 g/dL [facility] HCT 36.2 36.0 - 46.0 % [facility] PLT 335 150 - 450 K/uL [facility] MCV 90.5 80.0 - 100.0 fL [facility] MCH 29.3 27.0 - 31.0 pg [facility] MCHC 32.3 32.0 - 36.0 g/dL [facility] RDW 14.2 11.5 - 14.5 % [facility] MPV 9.2 8.4 - 12.0 fL [facility] NRBC 0.00 0.00 /100 WBCs [facility] ABSOLUTE NRBC 0.00 0.00 K/uL [facility] DIFF METHOD Auto [facility] NEUTS 52.5 48.0 - 76.0 % [facility] LYMPHS 34.6 18.0 - 41.0 % [facility] MONOS 6.4 4.0 - 11.0 % [facility] EOS 5.3(H) 0.0 - 5.0 % [facility] BASOS 0.8 0.0 - 1.5 % [facility] Granulocytes, immature (%) 0.4 0.0 - 0.9 % [facility] ABSOLUTE NEUTS 4.84 1.92 - 7.60 K/uL [facility] ABSOLUTE LYMPHS 3.19 0.72 - 4.10 K/uL [facility] ABSOLUTE MONOS 0.59 0.16 - 1.10 K/uL [facility] ABSOLUTE EOS 0.49 0.00 - 0.50 K/uL [facility] ABSOLUTE BASOS 0.07 0.00 - 0.15 K/uL [facility] Granulocytes, immature 0.04 0.00 - 0.09 K/uL [facility] Blood 12/12/2024 4:34 PM EDT 12/12/2024 4:42 PM EDT us Luís Lakhani MD LAB BLOOD BKR ORDERABLES Final R esult [facility] [address] [place] [address] * Outside LDL (03/30/2015) LDL - External 104 50 - 250 mg/ml us Historical Provider LAB BLOOD ORDERABLES Jazmyne l Result from Last 3 Months or Most Recently Relevant to Health Maintenance Insurance POS EPO POS EPO POS [place] [address] [place] [address] [address] [place] [address] [address] [place] [address] POS EPO [employer] O [place] E[place] [facility] [place] Care Teams Oracle R12 Developer Relationship Specialty Start Date End Date Risa Pitt MD [address] [place] [id number] PCP - General Internal Medicine 12/12/24 Additional Source Comments The information contained in this document represents components of the legal health record. It is not the complete legal health record.[facility]
== END 2025-03-04 08:49 | disposition home or self-care (01) ==
LOC: HO.HWS 07:54
PROVIDERS: PCP Internal Medicine; Visit Provider Advanced Practice Midwife
DX: Z01.419 Encounter for gynecological examination (general) (routine) without abnormal findings (principal); N90.89 Other specified noninflammatory disorders of vulva and perineum; R30.0 Dysuria
CPT/HCPCS: 99396; 99459

== ENCOUNTER 2025-03-04 07:54 | Outpatient (REF) | payer OTHER, SELFPAY ==
[2025-03-04 16:55] LABS: Bacterial Vaginosis PCR NEGATIVE (Negative); Candida Group PCR DETECTED (Not Detect); Candida glab krusei PCR NOT DETECTED (Not Detect); Trichomonas vaginalis PCR NOT DETECTED (Not Detect)
== END 2025-03-04 07:55 | disposition home or self-care (01) ==
LOC: HO.LAB 07:54
PROVIDERS: PCP Internal Medicine; Visit Provider Advanced Practice Midwife
DX: Z01.419 Encounter for gynecological examination (general) (routine) without abnormal findings (principal); N90.89 Other specified noninflammatory disorders of vulva and perineum; R30.0 Dysuria
CPT/HCPCS: 81003; 81515

== ENCOUNTER 2025-04-14 09:00 | Outpatient (AMB) | payer OTHER, SELFPAY ==
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
[2025-04-14 09:04] VITALS: BP 120/74; BMI 49.2
--- OUTSIDE RECORDS SUMMARY | 2025-04-14 10:09 | XMS_ITS | Clinical Summary ---
Author Organization [facility] Address [address] [place] [address] [place] [phone] Phone Care Team Providers Care Wellness Nurse Rn Name Role Phone Risa Pitt MD Primary [...] needed Orally every 6 hrs 7 Active Social History Tobacco Use Types Packs/Day Years [...] Procedure Name Priority Date/Time Associated Diagnosis Comments OUTSIDE LDL Routine 03/30/2015 from Last 3 Months or Most Recently Relevant to Health Maintenance Results * Outside LDL (03/30/2015) LDL - External 104 50 - 250 mg/ml us Historical Provider LAB BLOOD ORDERABLES Jazmyne l Result from Last 3 Months or Most Recently Relevant to Health Maintenance Insurance O POS EPO O POS EPO O POS EPO [facility] [place] [address] [place] [address] POS EPO Care Teams Wellness Nurse Rn Relationship Specialty Start Date End Date Risa Pitt MD [facility] [place] [phone] PCP - General Internal Medicine 12/12/24 Additional Source Comments The information contained in this document represents components of the legal health record. It is not the complete legal health record.[facility]
== END 2025-04-14 09:41 | disposition home or self-care (01) ==
LOC: HO.HWS 09:01
PROVIDERS: PCP Internal Medicine; Visit Provider Advanced Practice Midwife
DX: N90.89 Other specified noninflammatory disorders of vulva and perineum (principal)
CPT/HCPCS: 99213